=== PATIENT | male | born 1985 | race Caucasian/White ===

== ENCOUNTER → 2019-07-08 | Outpatient (CLI) | payer MEDICARE, OTHER ==
[2019-07-08 16:47] LABS: Basophils # (A) 0.1 k/uL (0-0.2); Basophils % (A) 1 %; Eosinophils # (A) 0.1 k/uL (0-0.7); Eosinophils % (A) 1 %; HCT 50.4 % (39.0-53.0); HGB 17.2 gm/dL (13.0-17.5); Lymphocytes # (A) 2.7 k/uL (1.0-4.8); Lymphocytes % (A) 26 %; MCH 28.8 pg (25.0-35.0); MCHC 34.1 g/dL (31.0-37.0); MCV 84.6 fL (80.0-100.0); Mean Platelet Volume 7.7; Monocytes # (A) 0.4 k/uL (0-1.0); Monocytes % (A) 4 %; Neutrophils # (A) 6.9 k/uL (1.3-7.7); Neutrophils % (A) 67 %; Platelet Count 343 k/uL (150-450); RBC 5.96 m/uL (4.30-5.90); RDW 13.5 % (11.5-15.5); WBC 10.3 k/uL (3.8-10.6)
[2019-07-09 01:39] LABS: T4, Free (Free Thyroxine) 1.4 ng/dL (0.80-1.80)
[2019-07-09 01:50] LABS: Albumin 5.1 g/dL (3.80-4.90); Albumin/Globulin Ratio 2.04 (1.60-3.17); Anion Gap 13.5 mmol/L (4.00-12.00); Calcium 10.4 mg/dL (8.7-10.3); Carbon Dioxide 24.5 mmol/L (21.6-31.8); Chol/HDL Ratio 3.14; Globulin 2.5 g/dL (1.6-3.3); LDL Cholesterol,Calculated 71.6 mg/dL (0.0-131.0); Non-African American GFR(CKD) 117.4 (60.0-200.0); Potassium 4.4 mmol/L (3.5-5.5); Total Bilirubin 0.6 mg/dL (0.2-1.2); Total Protein 7.6 g/dL (6.2-8.2); VLDL Calculation 33.4 mg/dL (5.00-40.00)
== END | disposition home or self-care (01) ==
LOC: LABWHC1 14:50
PROVIDERS: ATTEND Family Medicine
DX: Z00.00 Encounter for general adult medical examination without abnormal findings (principal); E55.9 Vitamin D deficiency, unspecified; E78.5 Hyperlipidemia, unspecified; R53.83 Other fatigue; Z13.220 Encounter for screening for lipoid disorders
CPT/HCPCS: 36415; 80053; 80061; 82306; 84439; 84443; 85025

== ENCOUNTER → 2019-07-24 | Outpatient (CLI) | payer MEDICARE, OTHER ==
--- NOTE | 2019-07-24 13:44 | US ---
EXAMINATION TYPE: US thyroid st tissue head/neck DATE OF EXAM: 07/24/2019 COMPARISON: NONE CLINICAL HISTORY: E01.1 thyroid nodule. Thyroid nodule GLAND SIZE: Right Lobe: 4.8 x 1.5 x 1.9 cm Overall Parenchyma: homogenous Left Lobe: 4.5 x 1.9 x 1.5 cm Overall Parenchyma: homogeneous Isthmus Thickness: 0.3 cm NODULES RIGHT: # of nodules measured on right: 0 LEFT: # of nodules measured on left: 2 1. 1.6 X 1.2 x 1.1 cm hypoechoic solid nodule at the mid pole with well-defined margins. This nodul e is taller than wide and shows intranodular vascularity. Prior size: no previous 2. 0.6 X 0.5 x 0.6 cm hypoechoic cystic nodule at the lateral mid pole with well-defined margins. Th is nodule is wider than tall and shows no intranodular vascularity. Prior size: no previous ISTHMUS: # of nodules measured in the isthmus: 0 Bilateral neck scanned, left neck: 2 complex areas seen lateral and inferior to thyroid lobe. These l ikely represent enlarged lymph nodes with the 1st measuring 4.7 x 1.2 x 1.8cm and the 2nd measuring 3 .7 x 1.7 x 2.1cm. IMPRESSION: 1. Ovoid mass is inferior to the left thyroid lobe, likely enlarged lymph nodes. Short-term follow-up ultrasound could ensure decreased size. If there is no recent infections or possible etiology fine-n eedle aspiration could be considered to exclude lymphoma. 2. Left thyroid nodules measuring 1.6 cm and 0.6 cm. Largest left thyroid nodule is borderline size f or fine-needle aspiration. Short-term follow-up versus aspiration could be considered.
== END | disposition home or self-care (01) ==
LOC: RADCTMAIN 11:16
PROVIDERS: ATTEND Psychiatry & Neurology Pain Medicine
DX: E04.2 Nontoxic multinodular goiter (principal)
CPT/HCPCS: 76536

== ENCOUNTER → 2019-10-05 | Outpatient (CLI) | payer MEDICARE, OTHER | END | disposition home or self-care (01) | LOC: LABWHC1 12:00 | PROVIDERS: ATTEND Surgery | DX: Z11.59 Encounter for screening for other viral diseases (principal) | CPT/HCPCS: 87635 ==

== ENCOUNTER 2019-10-07 11:54 | Day surgery (SDC) | payer MEDICARE, OTHER ==
[2019-10-07 12:36] VITALS: RESP 16; TEMP 98.2
[2019-10-07] MEDS ORDERED: ALPRAZolam 0.5 MG TAB PO ONE (12:43)
[2019-10-07 14:12] VITALS: BP 107/70; PULSE 89
--- NOTE | 2019-10-07 14:32 | US ---
EXAMINATION TYPE: US FNA first lesion DATE OF EXAM: 10/07/2019 HISTORY: left cervical adenopathy FINDINGS: Maximal barrier technique was utilized. Hand hygiene achieved with soap and water. The ski n overlying a suitable path to the patient's left cervical adenopathy was localized with ultrasound a nd the overlying skin prepped and draped. Ultrasound was utilized with sterile technique. Lidocaine was used for local anesthesia. A skin mariam was made with a scalpel. An 21-gauge needle was advance d under direct ultrasound guidance and aspirated specimen obtained of the mass. Dark fluid was aspira adam approximately 5 cc. Specimen submitted in formalin to Pathology. Following the procedure, hemost asis achieved and the patient is discharged in stable condition without complication. IMPRESSION:STATUS POST ULTRASOUND GUIDED FINE-NEEDLE ASPIRATION OF LEFT CERVICAL ADENOPATHY, PATHOLOG Y IS PENDING. THIS PROCEDURE IS PERFORMED BY THE UNDERSIGNED.
== END 2019-10-07 14:16 | disposition home or self-care (01) ==
LOC: RADPROMAIN 11:54
PROVIDERS: ATTEND Surgery
DX: R59.0 Localized enlarged lymph nodes (principal)
CPT/HCPCS: 10005; 88173; 88305

== ENCOUNTER → 2019-12-07 | Outpatient (CLI) | payer MEDICARE, OTHER ==
--- NOTE | 2019-12-08 07:38 | US ---
EXAMINATION TYPE: US st tissue neck DATE OF EXAM: 12/07/2019 COMPARISON: 07/24/2019 CLINICAL HISTORY: 32-year-old male R59.0 LYMPHADENOPATHY OF LT CERVICAL REGION. History of enlarged n odes on the left with h/o FNA that was inconclusive per patient Technique: Scanning along the left side of neck for assessment of lymphadenopathy. Comparison images to the contralateral side were obtained. FINDINGS: String of enlarged, cystic appearing nodes on the left lateral neck. Largest was supraclavicular elmira on = 4.0 x 2.3 x 2.0cm (versus up to 4.7 x 1.8 x 1.2 cm, previously). Right side scanned for comparison and nodes seen were wnl, largest on the right = 1.9 x 1.3 x 0.3cm IMPRESSION: Continued left-sided cervical lymphadenopathy with enlarged, cystic-appearing, possibly suppurative l ymph nodes measuring up to 4.0 x 2.3 x 2.0 cm (versus 4.7 x 1.8 x 1.2 cm, previously). Correlate for possibility of atypical infections. If the findings persist or growth is noted, consider excisional b iopsy. Smaller but borderline sized right-sided lymph nodes measuring up to 1.3 cm short axis.
== END | disposition home or self-care (01) ==
LOC: RADUSWWP 15:53
PROVIDERS: ATTEND Surgery
DX: R59.0 Localized enlarged lymph nodes (principal)
CPT/HCPCS: 76536

== ENCOUNTER 2020-03-08 10:15 | Emergency (ER) | payer MEDICARE, OTHER ==
[2020-03-08 10:21] VITALS: BP 118/78; PULSE 75; RESP 16; TEMP 97.7
[2020-03-08] MEDS ORDERED: AMOXIC-POT CLAV 875-125MG 1 EACH TAB PO STA (10:48)
--- NOTE | 2020-03-08 10:50 | ED ---
ENT HPI - General Chief complaint: ENT Stated complaint: dental pain/abscess Time Seen by Provider: 03/08/20 10:27 Source: patient Mode of arrival: ambulatory Limitations: no limitations - History of Present Illness Initial comments: Patient is a 34-year-old male presenting to the emergency department with chief complaint dental pain. Patient states he has been seeing a dentist but he has poor dentition secondary to previous Drug use or smoking cigarettes and vaping. States he has developed pain for last several days. Denies any night sweats or chills. Denies one sided facial swelling. Denies any discharge from the mouth. States that he receives a dentist is not able to get an at the moment. Patient is requesting antibiotics. - Related Data Home Medications Medication Instructions Recorded Confirmed Ondansetron HCl [Zofran] 8 mg PO DAILY PRN 09/29/19 03/08/20 ALPRAZolam [Xanax] 2 mg PO TID PRN 03/08/20 03/08/20 Buprenorphine HCl/Naloxone HCl 0.5 film SL BID 03/08/20 03/08/20 [Buprenorp-Nalox 8-2 mg Sl Film] Dextroamphetamine/Amphetamine 30 mg PO BID 03/08/20 03/08/20 [Adderall] Previous Rx's Medication Instructions Recorded Amoxicillin/Potassium Clav 1 tab PO Q12HR #20 tab 03/08/20 [Augmentin 875-125 Tablet] Allergies Allergy/AdvReac Type Severity Reaction Status Date / Time Penicillins Allergy Rash/Hives Verified 03/08/20 10:39 [email or web address] [From Chantix] AdvReac Unknown Verified 03/08/20 10:39 Review of Systems ROS Statement: Those systems with pertinent positive or pertinent negative responses have been documented in the HPI. ROS Other: All systems not noted in ROS Statement are negative. Past Medical History Past Medical History: GERD/Reflux, Hyperlipidemia, Liver Disease Additional Past Medical History / Comment(s): ADD, Hepatitis History of Any Multi-Drug Resistant Organisms: None Reported Past Surgical History: Tonsillectomy Past Anesthesia/Blood Transfusion Reactions: No Reported Reaction Past Psychological History: ADD/ADHD, Anxiety Smoking Status: Light tobacco smoker Past Alcohol Use History: None Reported Past Drug Use History: Marijuana - Past Family History Mother Family Medical History: No Reported History General Exam Limitations: no limitations General appearance: alert, in no apparent distress Head exam: Present: atraumatic, normocephalic, normal inspection Eye exam: Present: normal appearance, PERRL, EOMI Pupils: Present: normal accommodation ENT exam: Present: normal exam, mucous membranes moist, TM's normal bilaterally, normal external ear exam. Absent: normal oropharynx (Poor dentition. Multiple partially fractured teeth along with caries. No periapical abscess. Some gingival irritation in the left upper region of the oral cavity.) Neck exam: Present: normal inspection, full ROM. Absent: tenderness Respiratory exam: Present: normal lung sounds bilaterally. Absent: respiratory distress, wheezes, rales Cardiovascular Exam: Present: regular rate, normal rhythm, normal heart sounds Extremities exam: Present: normal inspection, full ROM, normal capillary refill. Absent: tenderness, pedal edema, joint swelling, calf tenderness Back exam: Present: normal inspection, full ROM. Absent: tenderness, CVA tenderness (R), CVA tenderness (L) Neurological exam: Present: alert, oriented X3, normal gait Psychiatric exam: Present: normal affect, normal mood Skin exam: Present: warm, dry, intact, normal color Course Vital Signs 03/08/20 10:18 Temperature 97.7 F Pulse Rate 75 Respiratory 16 Rate Blood Pressure 118/78 O2 Sat by Pulse 100 Oximetry Medical Decision Making - Medical Decision Making Patient 34-year-old male presenting to emergency Department with chief complaint dental pain. On physical examination, patient has poor dentition with multiple fractured teeth and dental caries. No signs of periapical abscess. No other oral lesions detected. He does have some gingival irritation. Patient will be started on Augmentin which he has previously tolerated. Also give the patient a tramadol starter pack per his request which only clue 3 tablets for pain control. Strict return parameters were thoroughly discussed with patient was understanding and agreeable. He was advised to follow-up with a dentist. Case discussed with physician. Disposition Clinical Impression: Pain, dental Disposition: HOME SELF-CARE Condition: Stable Instructions (If sedation given, give patient instructions): Toothache (ED) Additional Instructions: follow up with a dentist. return to the emergency department if symptoms worsen. take prescribed medication as directed Prescriptions: Amoxicillin/Potassium Clav [Augmentin 875-125 Tablet] 1 tab PO Q12HR #20 tab Is patient prescribed a controlled substance at d/c from ED?: No Referrals: Wilbur Deluca MD [Primary Care Provider] - 1-2 days Time of Disposition: 10:50
[2020-03-08] MEDS ORDERED: traMADol 50 MG STARTER PACK 3 TAB BTL PO STA (11:07)
== END 2020-03-08 11:12 | disposition home or self-care (01) ==
LOC: EC 10:15
DX: K08.89 Other specified disorders of teeth and supporting structures (principal); K08.9 Disorder of teeth and supporting structures, unspecified; S02.5XXA Fracture of tooth (traumatic), initial encounter for closed fracture; K02.9 Dental caries, unspecified; F90.9 Attention-deficit hyperactivity disorder, unspecified type; F41.9 Anxiety disorder, unspecified; F17.200 Nicotine dependence, unspecified, uncomplicated; Z79.899 Other long term (current) drug therapy; Z88.0 Allergy status to penicillin; Z88.8 Allergy status to other drugs, medicaments and biological substances; X58.XXXA Exposure to other specified factors, initial encounter
CPT/HCPCS: 99282

== ENCOUNTER → 2020-03-08 | Outpatient (CLI) | payer MEDICARE, OTHER ==
--- NOTE | 2020-03-08 10:48 | US ---
EXAMINATION TYPE: US st tissue neck DATE OF EXAM: 03/08/2020 COMPARISON: 12/07/2019 CLINICAL HISTORY: 34-year-old male R59.0 Localized enlarged lymph nodes. H/O inflamed lymph nodes carlos ng the left neck, patient has had FNA 10/07/19, patient has multiple teeth abscesses and states he has never been on antibiotics Technique: Targeted ultrasound examination along the left side of the neck corresponding to the palpa ble site. FINDINGS: Enlarged lymph node chain seen with largest node inferior to thyroid gland. The largest node = 3.8 x 2.2 x 2.1cm, slightly smaller in size from previous, this is the node they attempted FNA on also. (Ve rsus 4.0 x 2.3 x 2.2 cm, previously) [facility] St[employer]cher notes: Patient states he is "in so much pain that I walked him to to be evaluated." IMPRESSION: Relatively similar suppurative appearing lymphadenopathy along the left side of the neck. Note that t he patient reports to be in severe pain. Correlate to exclude underlying infection.
== END | disposition home or self-care (01) ==
LOC: RADUSWWP 09:30
PROVIDERS: ATTEND Surgery
DX: R59.0 Localized enlarged lymph nodes (principal)
CPT/HCPCS: 76536

== ENCOUNTER → 2020-08-10 | Outpatient (CLI) | payer MEDICARE, OTHER ==
[2020-08-10 19:49] LABS: Basophils # (A) 0.04 X 10*3/uL (0.00-0.10); Basophils % (A) 0.6 %; Eosinophils # (A) 0.13 X 10*3/uL (0.04-0.35); Eosinophils % (A) 2.1 %; HCT 40.3 % (39.6-50.0); HGB 13.6 g/dL (13.0-17.0); Lymphocytes # (A) 2.62 X 10*3/uL (0.90-5.00); Lymphocytes % (A) 41.5 %; MCH 28.8 pg (27.0-32.0); MCHC 33.7 g/dL (32.0-37.0); MCV 85.4 fL (80.0-97.0); Mean Platelet Volume 10.3 fL (9.5-12.2); Monocytes # (A) 0.51 X 10*3/uL (0.20-1.00); Monocytes % (A) 8.1 %; Neutrophils # (A) 3.01 X 10*3/uL (1.80-7.70); Neutrophils % (A) 47.5 %; Platelet Count 294 X 10*3/uL (140-440); RBC 4.72 X 10*6/uL (4.40-5.60); RDW 12.7 % (11.5-14.5); WBC 6.32 X 10*3/uL (4.50-10.00)
[2020-08-11 02:52] LABS: T4, Free (Free Thyroxine) 1.2 ng/dL (0.80-1.80)
[2020-08-11 05:06] LABS: African American GFR (CKD) 128.7 (60.0-200.0); Albumin/Globulin Ratio 2.27 (1.60-3.17); Anion Gap 14.2 mmol/L (4.00-12.00); BUN/Creat Ratio 13.33 Ratio (12.00-20.00); Calcium 10.1 mg/dL (8.7-10.3); Carbon Dioxide 22.8 mmol/L (21.6-31.8); Chol/HDL Ratio 2.85; Globulin 2.2 g/dL (1.6-3.3); LDL Cholesterol,Calculated 56.4 mg/dL (0.0-131.0); Potassium 4.6 mmol/L (3.5-5.5); Total Protein 7.2 g/dL (6.2-8.2); VLDL Calculation 17.6 mg/dL (5.00-40.00)
== END | disposition home or self-care (01) ==
LOC: LABWHC1 10:51
PROVIDERS: ATTEND Family Medicine
DX: Z00.00 Encounter for general adult medical examination without abnormal findings (principal); E55.9 Vitamin D deficiency, unspecified; E78.5 Hyperlipidemia, unspecified; R53.83 Other fatigue; Z13.220 Encounter for screening for lipoid disorders
CPT/HCPCS: 36415; 80053; 80061; 82306; 84439; 84443; 85025

== ENCOUNTER 2020-08-25 14:33 | Inpatient (IN) | payer MEDICARE, MEDICAID ==
[2020-08-25] MEDS ORDERED: ALPRAZolam 1 MG TAB PO STA (15:12)
[2020-08-25 15:23] LABS: Appearance,Urine Turbid (Clear); Bacteria,Urine Rare /hpf; Bilirubin,Urine Negative (Negative); Blood,Urine Negative (Negative); Budding Yeast,Urine Occasional /hpf; Color,Urine Yellow; Glucose,Urine (UA) Negative (Negative); Ketones,Urine Negative (Negative); Leukocyte Esterase,Urine Negative (Negative); Mucus,Urine Few /hpf; Nitrite,Urine Negative (Negative); PH, Urine 5.5 (5.0-8.0); Protein,Urine Trace (Negative); RBC,Urine <1 /hpf (0-5); Specific Gravity,Urine 1.025 (1.001-1.035); Urobilinogen,Urine <2.0 mg/dL (<2.0); WBC,Urine 5 /hpf (0-5)
[2020-08-25 15:30] LABS: Amphetamine Screen,Urine Detected (NotDetected); Barbiturate Screen,Urine Not Detected (NotDetected); Benzodiazepines Screen,Urine Detected (NotDetected); Cocaine Screen,Urine Not Detected (NotDetected); Methadone Screen, Urine Not Detected (NotDetected); Opiate Screen,Urine Not Detected (NotDetected); Oxycodone Screen, Urine Not Detected (NotDetected); Phencyclidine Screen,Urine Not Detected (NotDetected); Tricyclic Antidepressant,Urine Not Detected (NotDetected); Urn Cannabinoid Scrn Detected (NotDetected)
[2020-08-25] MEDS ORDERED: OLANZapine 7.5 MG TAB PO STA (16:47)
--- NOTE | 2020-08-25 16:48 | ED ---
Psych HPI <ShaguftaCristo - Last Filed: 08/26/20 00:58> - General Source: patient, police Mode of arrival: ambulatory <Makenzie Colin - Last Filed: 08/26/20 22:48> - General Chief Complaint: Psychiatric Symptoms Stated Complaint: Petition Time Seen by Provider: 08/25/20 14:35 - History of Present Illness Initial Comments: Patient is a 34-year-old male with past history of ADD, hepatitis presents emergency Department with paranoia and delusions. Patient is accompanied by police. They report that the patient has called the Police Department upwards of 10 times in the past 2 days. He states that he is controlling the stock market. States that he has multiple times and has come back to life. Patient thinks that his phone is being tapped by [employer]. Patient has history of psychiatric disorder. They do arise physician the patient. There is no report of any suicidal or homicidal ideations. No known drug use. Patient is currently intoxicated. No other alleviating, precipitating or modifying factors (Makenzie Colin) - Related Data Home Medications Medication Instructions Recorded Confirmed ALPRAZolam [Xanax] 2 mg PO TID 03/08/20 08/25/20 Dextroamphetamine/Amphetamine 20 mg PO BID 03/08/20 08/25/20 [Adderall] Ondansetron HCl [Zofran] 4 mg PO TID PRN 08/25/20 08/25/20 buprenorphine HCL [Subutex] 4 mg SL BID 08/25/20 08/25/20 Allergies Allergy/AdvReac Type Severity Reaction Status Date / Time Penicillins Allergy Rash/Hives Verified 08/25/20 16:11 [email or web address] [From Chantix] AdvReac Unknown Verified 08/25/20 16:11 Review of Systems ROS Other: All systems not noted in ROS Statement are negative. <Cristo Eagle - Last Filed: 08/26/20 00:58> ROS Other: All systems not noted in ROS Statement are negative. <Makenzie Colin - Last Filed: 08/26/20 22:48> ROS Statement: Those systems with pertinent positive or pertinent negative responses have been documented in the HPI. Past Medical History Past Medical History: GERD/Reflux, Hyperlipidemia, Liver Disease Additional Past Medical History / Comment(s): ADD, Hepatitis C History of Any Multi-Drug Resistant Organisms: None Reported Past Surgical History: Tonsillectomy Past Anesthesia/Blood Transfusion Reactions: No Reported Reaction Past Psychological History: ADD/ADHD, Anxiety Smoking Status: Light tobacco smoker Past Alcohol Use History: None Reported Past Drug Use History: Marijuana - Past Family History Mother Family Medical History: No Reported History <Makenzie Colin - Last Filed: 08/26/20 22:48> General Exam Limitations: altered mental status General appearance: alert Head exam: Present: atraumatic, normocephalic, normal inspection Eye exam: Present: normal appearance, PERRL, EOMI. Absent: scleral icterus, conjunctival injection, periorbital swelling ENT exam: Present: normal exam, mucous membranes moist Neck exam: Present: normal inspection. Absent: tenderness, meningismus, lymphadenopathy Respiratory exam: Present: normal lung sounds bilaterally. Absent: respiratory distress, wheezes, rales, rhonchi, stridor Cardiovascular Exam: Present: tachycardia Neurological exam: Present: alert Psychiatric exam: Present: anxious, manic, other (pressured and nonsensical speech. Paranoid thoughts) <Makenzie Colin - Last Filed: 08/26/20 22:48> Course Vital Signs 08/25/20 08/25/20 14:35 17:20 Temperature 99.3 F Pulse Rate 107 H Respiratory 16 Rate Blood Pressure 113/79 110/80 O2 Sat by Pulse 97 Oximetry Medical Decision Making <Cristo Eagle - Last Filed: 08/26/20 00:58> <Makenzie Colin - Last Filed: 08/26/20 22:48> - Medical Decision Making I did see the patient and completed the clinical certificate (Cristo Eagle) Upon arrival patient is placed in room 13. A thorough history and physical exam was performed. He is requesting his daily dose of Xanax for which she is given. Patient provided a urine sample. He is currently awaiting EPS evaluation. (Makenzie Colin) - Lab Data Lab Results 08/25/20 08/25/20 Range/Units 15:13 22:50 Urine Color Yellow Urine Appearance Turbid (Clear) Urine pH 5.5 (5.0-8.0) Ur Specific [place] 1.025 (1.001-1.035) Urine Protein Trace H (Negative) Urine Glucose (UA) Negative (Negative) Urine Ketones Negative (Negative) Urine Blood Negative (Negative) Urine Nitrite Negative (Negative) Urine Bilirubin Negative (Negative) Urine Urobilinogen <2.0 (<2.0) mg/dL Ur Leukocyte Esterase Negative (Negative) Urine RBC <1 (0-5) /hpf Urine WBC 5 (0-5) /hpf Urine WBC Clumps Few H (None) /hpf Urine Bacteria Rare H (None) /hpf Urine Mucus Few H (None) /hpf Urine Yeast (Budding) Occasional H (None) /hpf Urine Opiates Screen Not Detected (NotDetected) Ur Oxycodone Screen Not Detected (NotDetected) Urine Methadone Screen Not Detected (NotDetected) Ur Propoxyphene Screen Not Detected (NotDetected) Ur Barbiturates Screen Not Detected (NotDetected) U Tricyclic Antidepress Not Detected (NotDetected) Ur Phencyclidine Scrn Not Detected (NotDetected) Ur Amphetamines Screen Detected H (NotDetected) U Methamphetamines Scrn Not Detected (NotDetected) U Benzodiazepines Scrn Detected H (NotDetected) Urine Cocaine Screen Not Detected (NotDetected) U Marijuana (THC) Screen Detected H (NotDetected) Coronavirus (PCR) Not Detected (Not Detectd) Disposition <Cristo Eagle - Last Filed: 08/26/20 00:58> Is patient prescribed a controlled substance at d/c from ED?: No <Makenzie Colin - Last Filed: 08/26/20 22:48> Clinical Impression: Psychosis Disposition: TRANSFER TO PSYCH HOSP/UNIT Condition: Serious
[2020-08-25] MEDS ORDERED: NICOTINE 7MG/24HR PATCH TRANSDERM STA (18:51)
[2020-08-25] MEDS ORDERED: ZIPRASIDONE 20 MG VIAL IM STA (19:08)
[2020-08-26] MEDS ORDERED: LORazepam 2 MG/ML INJ IM STA (01:26)
[2020-08-26] MEDS ORDERED: HALOPERIDOL LACTATE 5 MG/ML 1 ML VIAL IM PRN (01:27)
[2020-08-26] MEDS ORDERED: LORazepam 2 MG/ML INJ IM PRN (01:40)
[2020-08-26] MEDS ORDERED: MAGNESIUM HYDROXIDE 2,400 MG/10 ML CUP PO PRN (01:44)
[2020-08-26] MEDS ORDERED: MAG HYDROX/AL HYDROX/SIMETH 30 ML CUP PO PRN (01:44)
[2020-08-26] MEDS ORDERED: ACETAMINOPHEN TAB 325 MG TAB PO PRN (01:44)
[2020-08-26] MEDS: NICOTINE 14MG/24HR PATCH TRANSDERM SCH (08:16)
[2020-08-26] MEDS: LORazepam 1 MG TAB PO PRN ×3 (08:17→22:49)
[2020-08-26] MEDS ORDERED: NON FORMULARY DRUG (Buprenorphine Hcl [Subutex] 8 MG Tab.Subl) PO SCH (09:00)
[2020-08-26] MEDS ORDERED: NON FORMULARY DRUG PO SCH (09:00)
[2020-08-26] MEDS: haloperidoL 5 MG TAB PO PRN ×2 (13:57→22:53)
--- NOTE | 2020-08-26 14:07 | P.HP ---
Psychiatric H&P - . H&P Date: 08/26/20 History & Physical: IDENTIFYING DATA: He is a single 34-year-old male admitted to the psychiatric unit involuntarily. A friend, Navi Reagan, completed a Petition that read "Philip displayed paranoid and very delusional with real world situation s, his mental health is needing acute medical attention. Philip has had paranoia for many months. He has prior medical issues/memory concerns." HISTORY OF PRESENT ILLNESS: I reviewed the medical record including records from [facility], interviewed the patient and spoke with his adopted mother, Alexia. According to the ED assessment the police brought him to the ED and reported that he had called the police department up to 10 times over the 2 days prior to admission. He told the ED physician that he's controlling the stock market. He is multiple times and has come back to life. He believes that his phone is "being tapped" by [place]. He was irritable and minimally cooperative. He rambled about earning $50 million of [employer] and some people, whom he refers as "they" are trying to steal money from him. During the course of the interview he incorporated me into his paranoia alleging that I am also involved in keeping him from his money. In addition, he demanded to continue medications prescribed Suboxone, Adderall and Xanax prescribed by his primary care provider. He became increasingly angry when I explained that we do not prescribe Adderall and Xanax on this unit. His mother reported that he had been doing well up until about 2-3 months ago. He became increasing irritable, angry and demanding. She complained that he believes that he has $50 million and has called the police multiple times to complained that he was defrauded of this money. He believes that someone is scamming him. They're taking over his phone and doing something "online." He told her that "it is international." He is irritable and angry and is staying up all night to "watch his money." His aunt called mobile crisis about 2 weeks ago concerned about the marked change in his behavior. PAST PSYCHIATRIC HISTORY: Was unable to obtain a coherent past psychiatric history. He had a psychiatric assessment at [facility] in May 2020 where he was diagnosed with major depressive disorder with psychotic features, cannabis use disorder, mild neurocognitive disorder due to traumatic brain injury, alcohol use disorder, opiate use disorder and attention deficit disorder. He refused to continue with treatment because the recommendation from the mental health was to taper and discontinue Xanax and reduce the Adderall since psychostimulant such as Adderall may lower seizure threshold (he has a history of seizures). His adoptive mother reports that he's been involved in mental health services off and on since he was a child. He was diagnosed with ADHD and a learning disability. He has been treated with psychostimulants since he was a child. She was unsure but he may have been admitted to the psychiatric unit [facility] several years ago. PAST MEDICAL HISTORY: According to the medical record he has a history of GERD, hyperlipidemia and liver disease. diagnosed with hepatitis C. His mother reported multiple head injuries, seizures and hospitalizations secondary to heroin overdoses. ALLERGIES: Penicillins, varenicline SUBSTANCE USE HISTORY: He also would not talk but his substance use history. His mother reported that he began using heroin as a young adult. He had multiple rehabilitation episodes including a methadone maintenance clinic. He's had multiple heroin overdoses. He has been abstinent from heroin about 3 years and is prescribed Suboxone 8 mg twice a day by his primary care provider. She suspects he has a history of use of other drugs and alcohol. FAMILY PSYCHIATRIC/SUBSTANCE USE HISTORY: His biological mother had a history of substance use problems. LEGAL HISTORY: He has not on probation, parole or has pending charges. He is had multiple controlled substance possession convictions. He was released from supervision on 05/26/2019. SOCIAL HISTORY: He was born in [facility]. His aunt took custody of him at 18 months because his mother and father could not care for him. His mother had a history of substance use problems. The aunt adopted him when he was 3 years old. He was diagnosed with learning disorder and ADHD in elementary school where he was placed in special education. He graduated from high school. He was not able to consistently maintain employment. He was placed on disability in 2018. His mother is his payee and is considering petitioning for [employer]. He lives alone in an apartment. MENTAL STATUS EXAM: He presented as a disheveled appearing thin male who is irritable and angry. He made intermittent eye contact. He was restless throughout the interview. He had no distinguishing features or prominent physical abnormalities. He had angry facial expression. He was alert and oriented to person, place and time. He showed psychomotor agitation but no abnormal involuntary movements. His gait was steady. His speech was spontaneous with increased rate and volume. At times she became markedly angry and was yelling in the office. His affect was irritable and labile and at times intense and uncontrolled. He did not express suicidal ideation or wishes during our encounter. He talked about wanting to "kill them" for stealing his money. He obsessed over the belief that he 1 large amount of money and that some people are trying to steal the money from him. He was paranoid and express clear and organize paranoid delusional beliefs. His thinking was concrete, illogical and at times incoherent. He showed flight of ideas. Global impression of intellect is average. He has no awareness or understanding of his illness or need for treatment. STRENGTHS: Supportive family, stable income, stable housing, good physical health, abstinence from heroin WEAKNESSES: History of substance use disorder, chronic treatment with psychostimulants and benzodiazepines, learning disability, history of closed head injury IMPRESSION: He is a 34-year-old single male who has a history of ADHD and learning disability. He presented to unit involuntarily with increased irritability, restlessness, confusion and a fixed grandiose and paranoid delusional beliefs. He was minimally cooperative with the assessment and much information was obtained from his adopted mother. She describes a change in his behavior beginning to 3 months prior to admission. He has a history of opiate use disorder as been abstinent since he has been prescribed Suboxone. I suspect that the change in his mental status is related to use of high-dose benzodiazepines and psychostimulants since he does not have a history of a psychotic disorder. She was she inpatient basis with combination of psychopharmacology and multimodal therapy. PRINCIPLE DIAGNOSIS: Unspecified psychosis disorder, rule out substance induced psychotic disorder, rule out bipolar disorder most recent episode manic with psychotic features, opiate use disorder and activities therapy, benzodiazepine use disorder, rule out benzodiazepine and/or amphetamine withdrawal, history of ADHD, history of learning disability RECOMMENDATION: Admit the psychiatric unit involuntarily. Completed the second clinical certificate and proceeded with involuntary hospitalization. Consult medicine for initial physical exam and medical history. house worker general completed a psychosocial assessment to coordinate discharge and aftercare. Continue outpatient dose of buprenorphine 4 mg sublingual twice a day. Do not prescribed Adderall or Xanax. Ativan 1 mg by mouth or IM 3 times a day when necessary for agitation or anxiety. Haldol 5 mg by mouth or IM for agitation acute psychosis. Discuss treatment with a second generation antipsychotic; if he declines consent then begin the medication after the probate order for involuntary treatment. Evaluate clinical status response to treatment daily basis. Encourage participation in therapeutic groups and activities. Allergies Allergy/AdvReac Type Severity Reaction Status Date / Time Penicillins Allergy Rash/Hives Verified 08/25/20 16:11 varenicline [From Chantix] AdvReac Unknown Verified 08/25/20 16:11 Vital Signs Temp 99.3 F 08/25/20 14:35 Pulse 107 H 08/25/20 14:35 Resp 16 08/25/20 14:35 BP 110/80 08/25/20 17:20 Pulse Ox 97 08/25/20 14:35 Intake & Output 08/25/20 08/26/20 08/26/20 18:59 06:59 18:59 Weight 58.967 kg Laboratory Last Values Urine Color Yellow 08/25/20 15:13 Urine Appearance Turbid (Clear) 08/25/20 15:13 Urine pH 5.5 (5.0-8.0) 08/25/20 15:13 Ur Specific [place] 1.025 (1.001-1.035) 08/25/20 15:13 Urine Protein Trace (Negative) H 08/25/20 15:13 Urine Glucose (UA) Negative (Negative) 08/25/20 15:13 Urine Ketones Negative (Negative) 08/25/20 15:13 Urine Blood Negative (Negative) 08/25/20 15:13 Urine Nitrite Negative (Negative) 08/25/20 15:13 Urine Bilirubin Negative (Negative) 08/25/20 15:13 Urine Urobilinogen <2.0 mg/dL (<2.0) 08/25/20 15:13 Ur Leukocyte Esterase Negative (Negative) 08/25/20 15:13 Urine RBC <1 /hpf (0-5) 08/25/20 15:13 Urine WBC 5 /hpf (0-5) 08/25/20 15:13 Urine WBC Clumps Few /hpf (None) H 08/25/20 15:13 Urine Bacteria Rare /hpf (None) H 08/25/20 15:13 Urine Mucus Few /hpf (None) H 08/25/20 15:13 Urine Yeast (Budding) Occasional /hpf (None) H 08/25/20 15:13 Urine Opiates Screen Not Detected (NotDetected) 08/25/20 15:13 Ur Oxycodone Screen Not Detected (NotDetected) 08/25/20 15:13 Urine Methadone Screen Not Detected (NotDetected) 08/25/20 15:13 Ur Propoxyphene Screen Not Detected (NotDetected) 08/25/20 15:13 Ur Barbiturates Screen Not Detected (NotDetected) 08/25/20 15:13 U Tricyclic Antidepress Not Detected (NotDetected) 08/25/20 15:13 Ur Phencyclidine Scrn Not Detected (NotDetected) 08/25/20 15:13 Ur Amphetamines Screen Detected (NotDetected) H 08/25/20 15:13 U Methamphetamines Scrn Not Detected (NotDetected) 08/25/20 15:13 U Benzodiazepines Scrn Detected (NotDetected) H 08/25/20 15:13 Urine Cocaine Screen Not Detected (NotDetected) 08/25/20 15:13 U Marijuana (THC) Screen Detected (NotDetected) H 08/25/20 15:13 Coronavirus (PCR) Not Detected (Not Detectd) 08/25/20 22:50 08/26/20 09:36 08/26/20 11:12 08/26/20 13:57
--- NOTE | 2020-08-26 20:59 | CONS ---
CONSULTATION CHIEF COMPLAINT: Acute psychosis. HISTORY OF PRESENT ILLNESS: The is the first known admission for this 34-year-old white male who has a long history of psychiatric problems and drug abuse. He has been coming to us recently in the Suboxone program and has recently done very well. He has cleaned up his drug habit. Apparently he was exuding paranoid delusions and was brought to the emergency room by the police. At the present time he is very lethargic and there is no other history obtained. Past medical history, family history, and personal and social histories reveal he is ALLERGIC TO CHANTIX AND PENICILLIN. He is currently on Zofran 4 mg 3 times a day p.r.n., Xanax 2 mg t.i.d., buprenorphine 8 mg tablets 1/2 twice a day, and Adderall 20 mg twice a day. PHYSICAL EXAMINATION: Blood pressure 128/80, pulse 96, respirations 24. He is afebrile. In general he appeared to be very lethargic. Skin color was normal. Skin was dry. Head, ears, eyes, nose, mouth and throat were normal as well as could be examined. Chest was clear. Cardiac exam was normal. The abdomen was soft and nontender. Extremities were normal. IMPRESSION: 1. Paranoid schizophrenia with acute psychosis. 2. History of substance abuse. RECOMMENDATIONS: None except to keep him on his medications as he is taking as an outpatient. MMODL / IJN: [id number] /
[2020-08-26] MEDS: SUBUTEX PO SCH (22:01)
[2020-08-27] MEDS: NICOTINE 14MG/24HR PATCH TRANSDERM SCH (08:33)
[2020-08-27] MEDS: LORazepam 1 MG TAB PO PRN ×3 (08:34→21:01)
[2020-08-27] MEDS: SUBUTEX PO SCH ×2 (08:36→20:59)
[2020-08-27] MEDS: haloperidoL 5 MG TAB PO PRN (12:11)
[2020-08-27] MEDS ORDERED: cloNIDine HCL 0.2 MG TAB PO PRN (15:30)
--- NOTE | 2020-08-27 15:32 | P.PN ---
Progress Note - Text Progress Note Date: 08/27/20 Clinical Problems: Unspecified psychotic disorder, rule out substance-induced psychotic disorder, rule out bipolar disorder recent episode manic with psychotic features, opiate use disorder on agonist therapy, opiate withdrawal, benzodiazepine use disorder, benzodiazepine withdrawal, amphetamine withdrawal, history of ADHD, history of learning disability Interim history: I reviewed the medical record and attempted to interview the patient. He was laying in bed with a towel over his eyes. He was irritable and demanding. He is angry that we have not provided him with his buprenorphine, Adderall or Xanax. I again explained that we will not be prescribing Xanax or Adderall but we will dispense buprenorphine once his mother brings in his home medication. He is frequently requesting when necessary Ativan for complaints of subjective anxiety. He is not attending therapeutic groups or interacting with staff or peers. He spends his time in bed coming out for meals and medications. He slept 7 hours last night. Mental status exam: He presented as an irritable and angry 34-year-old male who is laying in bed. He would not make eye contact or fully cooperate with an interview. He had marked Angelo psychomotor slowing. His speech was abrupt, loud and angry. His affect was consistent with his mood. He didn't express suicidal ideation wishes homicidal ideation. He did not express paranoid ideation or delusions. His thinking was concrete medication. His thinking was concrete and medication focused. He did not appear to be responding to internal stimuli. Assessment: He is experiencing withdrawal from opiates, benzodiazepines and psychostimulants. I suspect that his psychotic symptoms were result of his multiple drug use is particularly the Adderall. We will administer buprenorphine once his mother brings in his home medications. Plan: Continue inpatient treatment. Safety precautions. Begin clonidine with 2 mg 4 times a day when necessary for opiate withdrawal symptoms. Continue Haldol and/or Ativan for anxiety, agitation or aggression. Encourage participation in therapeutic groups and activities. Evaluate clinical status response to treatment daily basis.
[2020-08-28] MEDS: NICOTINE 14MG/24HR PATCH TRANSDERM SCH (08:29)
[2020-08-28] MEDS: PATIENT'S OWN (Buprenorphine Hcl [Subutex] 8 MG Tab.Subl) PO SCH ×2 (10:02→21:30)
[2020-08-28] MEDS: SUBOXONE 4 MG PO SCH ×2 (10:03→10:09)
[2020-08-28] MEDS: LORazepam 1 MG TAB PO PRN (10:07)
[2020-08-28] MEDS: SUBUTEX PO SCH (11:11)
[2020-08-28] MEDS ORDERED: OLANZapine 5 MG TAB PO PRN (14:00)
[2020-08-28] MEDS ORDERED: OLANZapine 10 MG VIAL IM PRN (14:00)
[2020-08-28] MEDS: OLANZapine 2.5 MG TAB PO SCH (14:47)
--- NOTE | 2020-08-28 15:00 | P.PN ---
Progress Note - Text Progress Note Date: 08/28/20 Clinical Problems: Unspecified psychotic disorder, rule out substance-induced psychotic disorder, rule out bipolar disorder recent episode manic with psychotic features, opiate use disorder on agonist therapy, opiate withdrawal, benzodiazepine use disorder, benzodiazepine withdrawal, amphetamine withdrawal, history of ADHD, history of learning disability Interim history: I reviewed the medical record and interviewed the patient. He was much less irritable and withdrawn than yesterday. His mother brought this prescription of buprenorphine for us to dispense. His mood improved with markedly after the first dose of buprenorphine. However, he requested to reduce the dose from the prescribed 8 mg twice a day to 4 mg twice a day. He stated that he is concerned about "running out" of the buprenorphine was in the hospital and, he alleged that he has been trying to reduce his dose. He began talking about the bizarre and grandiose beliefs that brought him to the hospital. Specifically that he won millions of dollars and that some people have stolen most of her money from him. He believes that he won the fortune in digital money and somehow became involved in global payment system. He became upset when I challenged his belief. He maintained that he is not "delusional" and stated that a for no anything about digital money I would know that he is talking about. However, he agreed to start an antipsychotic He is not attending therapeutic groups or interacting with staff or peers. He spends his time in bed coming out for meals and medications. He slept 7 hours last night. Mental status exam: He presented as a thin and slightly disheveled appearing 34-year-old male who is laying in bed. He made eye contact and attended the interview. His speech was spontaneous with normal rate and rhythm. His affect was irritable but appropriate. He denied suicidal ideation wishes homicidal ideation. He talked extensively about his fixed paranoid and grandiose delusional beliefs. These beliefs are fixed and influencing his behavior. His thinking was concrete medication. His thinking was concrete but goal directed He did not appear to be responding to internal stimuli. Assessment: He is much less distressed after we restarted buprenorphine. He is again talking about his chronic delusional beliefs. I wonder if she is a victim of an email scam where he is promise payment if he remits money. Plan: Continue inpatient treatment. Safety precautions. Decrease buprenorphine 4 mg twice a day Begin olanzapine 2.5 mg daily and titrated according to clinical response and tolerance. Discontinue Haldol and prescribed olanzapine 5 mg by mouth or IM 3 times a day when necessary for anxiety, agitation acute psychosis. Continue Ativan 1 mg by mouth or IM 3 times a day. Encourage participation in therapeutic groups and activities. Evaluate clinical status response to treatment daily basis.
[2020-08-28] MEDS ORDERED: BENZTROPINE MESYLATE 1 MG TAB PO PRN (20:03)
[2020-08-28] MEDS ORDERED: BENZTROPINE 2 MG/2 ML AMP IM ONE (20:15)
[2020-08-29] MEDS: NICOTINE 14MG/24HR PATCH TRANSDERM SCH (08:29)
[2020-08-29] MEDS: OLANZapine 2.5 MG TAB PO SCH (08:29)
[2020-08-29] MEDS: PATIENT'S OWN (Buprenorphine Hcl [Subutex] 8 MG Tab.Subl) PO SCH ×2 (08:29→21:12)
[2020-08-29] MEDS: LORazepam 1 MG TAB PO PRN ×2 (11:06→22:33)
--- NOTE | 2020-08-29 13:29 | P.PN ---
Progress Note - Text Progress Note Date: 08/29/20 Clinical Problems: Unspecified psychotic disorder, rule out substance-induced psychotic disorder, rule out bipolar disorder recent episode manic with psychotic features, opiate use disorder on agonist therapy, opiate withdrawal, benzodiazepine use disorder, benzodiazepine withdrawal, amphetamine withdrawal, history of ADHD, history of learning disability Interim history: I reviewed the medical record and interviewed the patient. He had a dystonic reaction yesterday that he attributes to the Zyprexa. I told him that I suspect is related to the Haldol he took on Saturday and Saturday. We spent much of the session talking about him and his fixed delusional belief. In addition to the grandiose belief that he has 180 mg dollars he believes that "some people" has stolen most of his money and "people" are monitoring him. They have "tapped his phone" and monitor his computer. He believes that he won or earned this money from his stock investments through a mobile phone and called [employer]. I looked up this application and it a popular banking, investment and peer lending program. He was reluctant to talk about the details because he believes that he signed a "nondisclosure agreement" and the "people" were monitoring him will no if he violated the agreement. He is denying and opiate withdrawal symptoms. Mental status exam: He presented as a thin and slightly disheveled appearing 34-year-old male who is laying in bed. He made eye contact and attended the interview. His speech was spontaneous with normal rate and rhythm. His affect was calm and appropriate. He denied suicidal ideation wishes homicidal ideation. He talked extensively about his fixed paranoid and grandiose delusional beliefs. These beliefs are fixed and influencing his behavior. His thinking was concrete medication. His thinking was concrete but goal directed He did not appear to be responding to internal stimuli. Assessment: He is much less distressed than on admission. He experienced a dystonic reaction to antipsychotic medication that has since resolved.. He main tains a fixed paranoid and grandiose delusional beliefs. Plan: Continue inpatient treatment. Safety precautions. Continue buprenorphine 4 mg twice a day encourage him to continue with olanzapine 2.5 mg daily and titrated according to clinical response and tolerance. Continue Ativan 1 mg by mouth or IM 3 times a day. Encourage participation in therapeutic groups and activities. Evaluate clinical status response to treatment daily basis.
[2020-08-29] MEDS ORDERED: BENZTROPINE 2 MG/2 ML AMP IM ONE (20:15)
[2020-08-30] MEDS: PATIENT'S OWN (Buprenorphine Hcl [Subutex] 8 MG Tab.Subl) PO SCH ×2 (08:01→20:33)
[2020-08-30] MEDS: NICOTINE 14MG/24HR PATCH TRANSDERM SCH (08:02)
[2020-08-30] MEDS: OLANZapine 2.5 MG TAB PO SCH (08:02)
--- NOTE | 2020-08-30 11:02 | P.PN ---
Progress Note - Text Progress Note Date: 08/30/20 Interval History: Patient was seen wandering the hallways and was directable and agreeable to speak with copy writer in the office. The patient is experiencing significant grandiose and bizarre delusions. He currently rambles on about cryptocurrency, block chain, and the stock market. When asked to further elaborate the patient reveals little to no true understanding about any of these subjects. He states he has at least $1.2 million dollar that he needs to move. He expresses that his phone is bugged by "[place]ians in [place]." He also expresses that all of his wealth and everything he is saying is true as he signed "a 30 page non- disclosure agreement." When asked what his NDA entails, the patient responds, "What is an NDA?" He is also medication seeking stating he requires his adderall and xanax to function properly. He expresses regret at the end of the interview stating "If I'm honest, then I feel like I am staying here longer." Patient denies any suicidal or homicidal ideation, intention, and/or plan. He denies any auditory or visual hallucinations. Mental Status Exam: General Appearance: Patient appears to be stated age is alert, directable, and cooperative. Appears disheveled. Dressed in multiple layers. Behavior: Patient is calmly seated without any agitated behavior. Eye contact is intense. Psychomotor activity appears normal. Speech: Patient's speech is fluent and nonpressured. Spontaneous. Mood/Affect: Mood is "ready to go," affect is irritable. Suicidality/Homicidality: Patient denies having any suicidal or homicidal ideation intent or plan. Perceptions: Patient denies any visual hallucinations and denies any auditory hallucinations Though content/process: Grandiose and bizarre delusions are endorsed. Thought process is illogical. Memory and concentration: AOX3, grossly intact for the purposes of this session Judgment and insight: Very poor Assessment Schizoaffective disorder, bipolar type Plan: -Patient continues to meet criteria for inpatient psychiatric admission for symptom stabilization and safety. -Medications: Discontinue Zyprexa. Start Invega 3 mg by mouth at bedtime for mood stabilization/psychosis. Consider transition to a long-acting injectable Invega Sustenna. Start Depakote 500 mg by mouth at bedtime for mood stabilization/grandiosity. -When necessary Ativan and Zyprexa for agitation/aggression. -SW on board fordischarge planing. Encouraged the patient to participate in milieu. []
[2020-08-30] MEDS: LORazepam 1 MG TAB PO PRN ×2 (11:38→20:33)
[2020-08-30] MEDS ORDERED: PALIPERIDONE 3 MG TAB.ER.24 PO SCH (21:00)
[2020-08-30] MEDS ORDERED: OLANZapine 5 MG TAB PO SCH (21:00)
[2020-08-30] MEDS ORDERED: DIVALPROEX ER 500 MG TAB.ER.24H PO SCH (21:00)
[2020-08-31] MEDS: LORazepam 1 MG TAB PO PRN ×3 (00:52→16:44)
[2020-08-31] MEDS: PATIENT'S OWN (Buprenorphine Hcl [Subutex] 8 MG Tab.Subl) PO SCH ×2 (08:17→16:42)
[2020-08-31] MEDS ORDERED: OLANZapine 5 MG TAB PO SCH (09:00)
[2020-08-31] MEDS: NICOTINE 14MG/24HR PATCH TRANSDERM SCH (09:03)
--- NOTE | 2020-08-31 10:08 | P.PN ---
Progress Note - Text Progress Note Date: 08/31/20 Interval History: Patient was seen resting in bed and was directable and agreeable to speak with the signwriter in his room. The patient expresses that he is feeling better today. He reports that he had some difficulty sleeping last night, commenting that he only received about 2 hours in total. Despite this, patient is not reporting any significant issues regarding his mood. He is denying any auditory or visual hallucinations. He is not forthcoming with any paranoia or delusions. He is unable to recall the conversation we had yesterday, but when he was reminded about his discussion with me regarding group to currency, the patient began ranting and discussing his grandiose and bizarre delusions. He also appears to continue to be very medication seeking often asking for more Adderall or Xanax. He is also asking if his Subutex may be administered a different time. Overall, the patient does state that he feels like his focus is improved since starting his Invega and Depakote. He is not reporting any significant side effects at this time. Mental Status Exam: General Appearance: Patient appears to be stated age is alert, directable, and cooperative. Improved hygiene and grooming. Dressed in multiple layers. Behavior: Patient is calmly seated without any agitated behavior. Eye contact is intense. Psychomotor activity appears normal. Speech: Patient's speech is fluent and nonpressured. Spontaneous. Mood/Affect: Mood is "feeling okay." Affect is congruent and euthymic. Suicidality/Homicidality: Patient denies having any suicidal or homicidal ideation intent or plan. Perceptions: Patient denies any visual hallucinations and denies any auditory hallucinations Though content/process: Grandiose and bizarre delusions are endorsed but less forthcoming. Thought process is illogical. Memory and concentration: AOX3, grossly intact for the purposes of this session Judgment and insight: Very poor Assessment Schizoaffective disorder, bipolar type Plan: -Patient continues to meet criteria for inpatient psychiatric admission for symptom stabilization and safety. The patient is on deferral. -Medications: Increase Invega to 6 mg by mouth daily at bedtime for mood stabilization/psychosis. Increase Depakote to 750 mg by mouth at bedtime for mood stabilization/grandiosity. We will obtain Depakote level on Saturday. -When necessary Ativan and Zyprexa for agitation/aggression. -SW on board fordischarge planing. Encouraged the patient to participate in milieu.
[2020-08-31] MEDS ORDERED: DIVALPROEX ER 250 MG TAB.ER.24H PO SCH (21:00)
[2020-08-31] MEDS ORDERED: PALIPERIDONE 6 MG TAB.ER.24 PO SCH (21:00)
[2020-09-01] MEDS: LORazepam 1 MG TAB PO PRN ×2 (00:19→07:49)
[2020-09-01 00:27] VITALS: BP 110/72; PULSE 87; RESP 16; TEMP 97.4
[2020-09-01] MEDS: NICOTINE 14MG/24HR PATCH TRANSDERM SCH (07:48)
[2020-09-01] MEDS: PATIENT'S OWN (Buprenorphine Hcl [Subutex] 8 MG Tab.Subl) PO SCH (08:07)
[2020-09-01 09:14] LABS: ALT 39 U/L (4-49); African American GFR (CKD) >90 (>60 ml/min/1.73 sqM); Anion Gap 15 mmol/L; Blood Urea Nitrogen 16 mg/dL (9-20); Carbon Dioxide 20 mmol/L (22-30); Chloride 106 mmol/L (98-107); Glucose 94 mg/dL (74-99); Non-African American GFR(CKD) >90 (>60 ml/min/1.73 sqM); Sodium 141 mmol/L (137-145); Total Bilirubin 0.7 mg/dL (0.2-1.3); Total Protein 8.2 g/dL (6.3-8.2)
[2020-09-01 09:20] LABS: Valproic Acid (Depakene) 93.6 ug/mL
[2020-09-01 09:24] LABS: AST 40 U/L (17-59); Alkaline Phosphatase 80 U/L (38-126); Potassium 4.9 mmol/L (3.5-5.1)
--- NOTE | 2020-09-01 10:11 | P.DS ---
Providers Date of admission: 08/26/20 01:23 Expected date of discharge: 09/01/20 Attending physician: Cliff Phillips MD Consults: 08/26/20 01:44 Consult Physician Routine Consulting Provider: Wilbur Deluca Consult Reason/Comments: For H & P for Medical Follow Up Do you want consulting provider notified?: Yes, Notify in am Primary care physician: Wilbur Deluac - Discharge Diagnosis(es) (1) Schizoaffective disorder, bipolar type Current Visit: Yes Status: Acute Priority: High (2) Nicotine dependence Current Visit: Yes Status: Chronic Priority: Medium Hospital Course: Admission HPI: Initial psychiatric evaluation was completed by Dr. Phillips on 08/26/2020 who wrote: "He is a single 34-year-old male admitted to the psychiatric unit involuntarily. A friend, Navi Reagan, completed a Petition that read "Philip displayed paranoid and very delusional with real world situations, his mental health is needing acute medical attention. Philip has had paranoia for many months. He has prior medical issues/memory concerns." I reviewed the medical record including records from [facility], interviewed the patient and spoke with his adopted mother, Alexia. According to the ED assessment the police brought him to the ED and reported that he had called the police department up to 10 times over the 2 days prior to admission. He told the ED physician that he's controlling the stock market. He is multiple times and has come back to life. He believes that his phone is "being tapped" by [place]. He was irritable and minimally cooperative. He rambled about earning $50 million of [employer] and some people, whom he refers as "they" are trying to steal money from him. During the course of the interview he incorporated me into his paranoia alleging that I am also involved in keeping him from his money. In addition, he demanded to continue medications prescribed Suboxone, Adderall and Xanax prescribed by his primary care provider. He became increasingly angry when I explained that we do not prescribe Adderall and Xanax on this unit. His mother reported that he had been doing well up until about 2-3 months ago. He became increasing irritable, angry and demanding. She complained that he believes that he has $50 million and has called the police multiple times to complained that he was defrauded of this money. He believes that someone is scamming him. They're taking over his phone and doing something "online." He told her that "it is international." He is irritable and angry and is staying up all night to "watch his money." His aunt called mobile crisis about 2 weeks ago concerned about the marked change in his behavior." Hospital course: Upon admission to the unit patient was initially presenting as irritable and angry. Psychomotor agitation was evident. He endorsed significant paranoid and grandiose delusions involving large amounts of money, cryptocurrency, and delusions of surveillance. The patient was certified. The patient ended up deferring mental health court and was started on a regimen of Depakote and Invega for management of schizoaffective disorder bipolar type. The patient was compliant with these medications and displayed significant improvement in his gross disorganization and his grandiose and paranoid delusions. Although he continued to endorse his delusions, he was less forthcoming and less intense about these thoughts. He has been in adherent with his medications and reported no significant side effects. Over the course the hospitalization, the patient gradually improved in regards to his target psychotic symptoms, sleep, mood, and focus. He maintains his Adderall and Xanax for management of his ADHD and mood despite significant discussion involving his diagnosis of schizo effective disorder bipolar type as well as his history of seizures. This provider also left a message for Dr. Deluca's office recommending that the patient be tapered off his Adderall and Xanax as these medications may contribute to his psychotic symptoms. The patient has been scheduled for an appointment for dental implants that has been 6 months in the making. On the day of discharge, the patient continues to endorse his grandiose delusions and his belief that he has millions of dollars as well as mild delusions of surveillance. Overall he is less forthcoming with said delusions and does not appear to be acting on any of them. He has been adherent with his medications and was counseled great length the need for regular compliance as well as being counseled on the recommendation to taper off his Adderall and Xanax. The patient was counseled great length on abstaining from all illicit substances including alcohol and marijuana. He was counseled on following up with his outpatient appointments for mental health as well as for primary care. Prior to discharge, family meeting will be arranged by social work therapist chance any questions and ensure safety. Mental status exam: General Appearance: Patient appears to be stated age is alert, pleasant, and cooperative. Patient is in no acute distress and has fair hygiene and grooming. Behavior: Patient is calmly seated without any agitated behavior. Psychomotor activity appears normal. Speech: Patient's speech is fluent and nonpressured. Spontaneous, hyperverbal at times but otherwise with normal rate, tone, and volume. Mood/Affect: Patient reports their mood is "much better", affect is congruent and euthymic. Suicidality/Homicidality: Patient denies having any suicidal or homicidal ideation intent or plan. Perceptions: Patient denies any auditory or visual hallucinations. Though content/process: Thought process is linear and goal-directed. Patient continues to endorse delusional thought content of grandiosity and surveillance but is less forthcoming. The patient is future oriented. Memory and concentration: AOX3, grossly intact for the purposes of this session. Can spell "WORLD" backwards correctly. Judgment and insight: Improved with guarded prognosis Impression: Schizoaffective disorder, bipolar type Nicotine dependence Plan: -Continue with discharge today as patient has improved and stabilized psychiatrically and is not currently an imminent threat to himself and/or others. Patient will remain at chronically elevated risk for harm to self and/or others due to his lack of insight and substance dependence. -Continue medications: Invega 6 mg by mouth at bedtime for mood stabilization/psychosis Depakote 750 mg by mouth at bedtime for mood stabilization - Depakote level of 93.6 on 09/01/2020. -Patient was counseled on the need for medication compliance and appropriate follow-up at mental health and also primary care for medical issues. Patient verbalized understanding and agreed. -Social work to arrange for and conduct family meeting to ensure safety upon discharge and answer any questions/concerns. Social work also to arrange for patients follow up appointments with [facility] for psychiatric care along with follow up with primary care provider. -Patient counseled on abstaining from recreational drugs and marijuana and alcohol. Was informed/educated on the adverse effects on their physical and mental health. Patient verbally agreed and understood. -Patient was instructed to return to the hospital or seek immediate medical care if their psychiatric or medical symptoms do worsen or reoccur. -Psychoeducation and supportive therapy provided to patient. Risks and benefits of pharmacological treatment versus the risks and benefits of nontreatment weight and discussed. Informed consent discussion held. Common side effects of psychotropics discussed such as, but not limited to headache, GI disturbance, sexual dysfunction, movement disorders, sedation, and orthostatic hypotension. Life threatening and blackbox warnings of prescribed medications also discussed. Potential risks of operating a vehicle or heavy machinery discussed with patient at length. Advised on importance of compliance and a reliable and responsible manner. Patient advised to review FDA consumer labeling of all medi cations prior to taking. Patient verbalized understanding of potential risks, and agrees with current treatment plan. Patient advised to medically contact physician/emergency personnel if any acute changes in condition occur. Laboratory Results Sodium 141 mmol/L (137-145) 09/01/20 07:51 Potassium 4.9 mmol/L (3.5-5.1) 09/01/20 07:51 Chloride 106 mmol/L (98-107) 09/01/20 07:51 Carbon Dioxide 20 mmol/L (22-30) L 09/01/20 07:51 Anion Gap 15 mmol/L 09/01/20 07:51 BUN 16 mg/dL (9-20) 09/01/20 07:51 Creatinine 0.72 mg/dL (0.66-1.25) 09/01/20 07:51 Est GFR (CKD-EPI)AfAm >90 (>60 ml/min/1.73 sqM) 09/01/20 07:51 Est GFR (CKD-EPI)NonAf >90 (>60 ml/min/1.73 sqM) 09/01/20 07:51 Glucose 94 mg/dL (74-99) 09/01/20 07:51 Calcium 10.0 mg/dL (8.4-10.2) 09/01/20 07:51 Total Bilirubin 0.7 mg/dL (0.2-1.3) 09/01/20 07:51 AST 40 U/L (17-59) 09/01/20 07:51 ALT 39 U/L (4-49) 09/01/20 07:51 Alkaline Phosphatase 80 U/L (38-126) 09/01/20 07:51 Total Protein 8.2 g/dL (6.3-8.2) 09/01/20 07:51 Albumin 5.0 g/dL (3.5-5.0) 09/01/20 07:51 Urine Color Yellow 08/25/20 15:13 Urine Appearance Turbid (Clear) 08/25/20 15:13 Urine pH 5.5 (5.0-8.0) 08/25/20 15:13 Ur Specific [place] 1.025 (1.001-1.035) 08/25/20 15:13 Urine Protein Trace (Negative) H 08/25/20 15:13 Urine Glucose (UA) Negative (Negative) 08/25/20 15:13 Urine Ketones Negative (Negative) 08/25/20 15:13 Urine Blood Negative (Negative) 08/25/20 15:13 Urine Nitrite Negative (Negative) 08/25/20 15:13 Urine Bilirubin Negative (Negative) 08/25/20 15:13 Urine Urobilinogen <2.0 mg/dL (<2.0) 08/25/20 15:13 Ur Leukocyte Esterase Negative (Negative) 08/25/20 15:13 Urine RBC <1 /hpf (0-5) 08/25/20 15:13 Urine WBC 5 /hpf (0-5) 08/25/20 15:13 Urine WBC Clumps Few /hpf (None) H 08/25/20 15:13 Urine Bacteria Rare /hpf (None) H 08/25/20 15:13 Urine Mucus Few /hpf (None) H 08/25/20 15:13 Urine Yeast (Budding) Occasional /hpf (None) H 08/25/20 15:13 Urine Opiates Screen Not Detected (NotDetected) 08/25/20 15:13 Ur Oxycodone Screen Not Detected (NotDetected) 08/25/20 15:13 Urine Methadone Screen Not Detected (NotDetected) 08/25/20 15:13 Ur Propoxyphene Screen Not Detected (NotDetected) 08/25/20 15:13 Ur Barbiturates Screen Not Detected (NotDetected) 08/25/20 15:13 Valproic Acid 93.6 ug/mL 09/01/20 07:51 U Tricyclic Antidepress Not Detected (NotDetected) 08/25/20 15:13 Ur Phencyclidine Scrn Not Detected (NotDetected) 08/25/20 15:13 Ur Amphetamines Screen Detected (NotDetected) H 08/25/20 15:13 U Methamphetamines Scrn Not Detected (NotDetected) 08/25/20 15:13 U Benzodiazepines Scrn Detected (NotDetected) H 08/25/20 15:13 Urine Cocaine Screen Not Detected (NotDetected) 08/25/20 15:13 U Marijuana (THC) Screen Detected (NotDetected) H 08/25/20 15:13 Coronavirus (PCR) Not Detected (Not Detectd) 08/25/20 22:50 Vital Signs Temp 97.4 F L 09/01/20 00:21 Pulse 87 09/01/20 00:21 Resp 16 09/01/20 00:21 BP 110/72 09/01/20 00:21 Pulse Ox 98 08/29/20 06:32 Allergies Allergy/AdvReac Type Severity Reaction Status Date / Time Penicillins Allergy Rash/Hives Verified 08/25/20 16:11 [email or web address] From Chantix AdvReac Unknown Verified 08/25/20 16:11 Patient Condition at Discharge: Stable Plan - Discharge Summary Discharge Rx Participant: No New Discharge Prescriptions: New Divalproex ER [Depakote ER] 750 mg PO HS 30 Days tab.er.24h Nicotine 14Mg/24Hr Patch [Habitrol] 1 patch TRANSDERM DAILY 30 Days patch Paliperidone [Invega] 6 mg PO HS 30 Days tab.er.24 Continue buprenorphine HCL [Subutex] 4 mg SL BID Discontinued Dextroamphetamine/Amphetamine [Adderall] 20 mg PO BID ALPRAZolam [Xanax] 2 mg PO TID Ondansetron HCl [Zofran] 4 mg PO TID PRN PRN Reason: Nausea And Vomiting Discharge Medication List buprenorphine HCL [Subutex] 4 mg SL BID 08/25/20 [History] Divalproex ER [Depakote ER] 750 mg PO HS 30 Days tab.er.24h 09/01/20 [Rx] Nicotine 14Mg/24Hr Patch [Habitrol] 1 patch TRANSDERM DAILY 30 Days patch 09/01/20 [Rx] Paliperidone [Invega] 6 mg PO HS 30 Days tab.er.24 09/01/20 [Rx] Follow up Appointment(s)/Referral(s): Wilbur Deluca MD [Primary Care Provider] - 1-2 days Activity/Diet/Wound Care/Special Instructions: Activity and diet as tolerated. Avoid the use of street drugs and alcohol. Take all medications as prescribed. When you are in need of refills on your medications please contact your medical provider and/or outpatient psychiatrist to have this done. Please go to scheduled outpatient appointment for aftercare treatment. If symptoms return or become worse, call the crisis line at and/or go to the nearest emergency room for evaluation. Discharge Disposition: HOME SELF-CARE
== END 2020-09-01 12:45 | disposition home or self-care (01) | DRG 885 ==
LOC: EC 14:33 → 3MHU 08-26 01:23
PROVIDERS: ADMIT Psychiatry & Neurology Psychiatry; ATTEND Psychiatry & Neurology Psychiatry
DX: F25.0 Schizoaffective disorder, bipolar type (principal); E78.5 Hyperlipidemia, unspecified; F17.200 Nicotine dependence, unspecified, uncomplicated; F20.0 Paranoid schizophrenia; F81.9 Developmental disorder of scholastic skills, unspecified; F90.9 Attention-deficit hyperactivity disorder, unspecified type; Z20.822 Contact with and (suspected) exposure to COVID-19
CPT/HCPCS: 80053; 80164; 80306; 81001; 82075; 87635; 96372; 99285

== ENCOUNTER 2020-09-02 13:17 | Inpatient (IN) | payer MEDICARE, OTHER ==
[2020-09-02 15:25] LABS: Amphetamine Screen,Urine Detected (NotDetected); Barbiturate Screen,Urine Not Detected (NotDetected); Benzodiazepines Screen,Urine Detected (NotDetected); Cocaine Screen,Urine Not Detected (NotDetected); Methadone Screen, Urine Not Detected (NotDetected); Opiate Screen,Urine Not Detected (NotDetected); Oxycodone Screen, Urine Not Detected (NotDetected); Phencyclidine Screen,Urine Not Detected (NotDetected); Tricyclic Antidepressant,Urine Not Detected (NotDetected); Urn Cannabinoid Scrn Detected (NotDetected)
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
[2020-09-02] MEDS ORDERED: HALOPERIDOL LACTATE 5 MG/ML 1 ML VIAL IM STA (15:37)
[2020-09-02] MEDS ORDERED: LORazepam 2 MG/ML INJ IM STA ×2 (15:38→16:55)
[2020-09-02] MEDS ORDERED: diphenhydrAMINE 50 MG/ML 1 ML VIAL IM STA (16:54)
[2020-09-02] MEDS ORDERED: MAGNESIUM HYDROXIDE 2,400 MG/10 ML CUP PO PRN (17:30)
[2020-09-02] MEDS ORDERED: ACETAMINOPHEN TAB 325 MG TAB PO PRN (17:30)
[2020-09-02] MEDS ORDERED: HALOPERIDOL LACTATE 5 MG/ML 1 ML VIAL IM ONE (18:40)
[2020-09-02] MEDS ORDERED: DIVALPROEX ER 250 MG TAB.ER.24H PO SCH (21:00)
[2020-09-03] MEDS: PALIPERIDONE 6 MG TAB.ER.24 PO SCH ×2 (02:02→20:20)
[2020-09-03] MEDS: NON FORMULARY DRUG (Buprenorphine Hcl [Subutex] 8 MG Tab.Subl) SUBLINGUAL SCH ×3 (02:02→11:41)
[2020-09-03] MEDS: NICOTINE 14MG/24HR PATCH TRANSDERM SCH (07:55)
[2020-09-03] MEDS: LORazepam 1 MG TAB PO PRN ×2 (07:56→15:13)
[2020-09-03] MEDS ORDERED: DIVALPROEX ER 250 MG TAB.ER.24H PO STA (14:52)
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
[2020-09-03] MEDS: clonazePAM 0.5 MG TAB PO SCH (20:20)
[2020-09-03 23:06] LABS: Urine Alcohol Negative (Negative); Urine Barbiturate Negative (Negative); Urine Cocaine Negative (Negative); Urine Methadone Negative (Negative); Urine Opiates Negative (Negative); Urine Phencyclidine Negative (Negative)
[2020-09-03] MEDS: traZODone HCL 50 MG TAB PO SCH (23:15)
[2020-09-04] MEDS: BUPRENORPHINE HCL 4 MG SUBLINGUAL SCH ×2 (06:40→17:43)
[2020-09-04] MEDS: LORazepam 1 MG TAB PO PRN ×2 (06:40→16:45)
[2020-09-04] MEDS: NICOTINE 14MG/24HR PATCH TRANSDERM SCH (08:08)
[2020-09-04 08:19] LABS: ALT 35 U/L (4-49); AST 48 U/L (17-59); African American GFR (CKD) >90 (>60 ml/min/1.73 sqM); Albumin 3.6 g/dL (3.5-5.0); Alkaline Phosphatase 54 U/L (38-126); Anion Gap 5 mmol/L; Blood Urea Nitrogen 19 mg/dL (9-20); Calcium 8.8 mg/dL (8.4-10.2); Carbon Dioxide 27 mmol/L (22-30); Chloride 107 mmol/L (98-107); Glucose 94 mg/dL (74-99); Non-African American GFR(CKD) >90 (>60 ml/min/1.73 sqM); Potassium 4.1 mmol/L (3.5-5.1); Sodium 139 mmol/L (137-145); Total Bilirubin 0.4 mg/dL (0.2-1.3); Total Protein 6.1 g/dL (6.3-8.2)
[2020-09-04] MEDS: NICOTINE 21MG/24HR PATCH TRANSDERM SCH (11:38)
[2020-09-04 12:36] LABS: Basophils # (A) 0.1 k/uL (0-0.2); Basophils % (A) 1 %; Eosinophils # (A) 0.3 k/uL (0-0.7); Eosinophils % (A) 3 %; HCT 39.7 % (39.0-53.0); HGB 13.9 gm/dL (13.0-17.5); Lymphocytes # (A) 3.3 k/uL (1.0-4.8); Lymphocytes % (A) 37 %; MCH 30.1 pg (25.0-35.0); MCHC 35.1 g/dL (31.0-37.0); MCV 85.6 fL (80.0-100.0); Mean Platelet Volume 9.1; Monocytes # (A) 0.5 k/uL (0-1.0); Monocytes % (A) 5 %; Neutrophils # (A) 4.7 k/uL (1.3-7.7); Neutrophils % (A) 53 %; Platelet Count 222 k/uL (150-450); RBC 4.64 m/uL (4.30-5.90); RDW 12.9 % (11.5-15.5); WBC 8.8 k/uL (3.8-10.6)
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
--- NOTE | 2020-09-04 19:34 | CONS ---
CONSULTATION CHIEF COMPLAINT: Psychosis. HISTORY OF PRESENT ILLNESS: This is another recent admission for this 34-year-old white male who was in the psych unit, went home, and then came back immediately. REVIEW OF SYSTEMS: He is agitated and inappropriate and expressing paranoid delusions and thoughts. Past medical history, family history, personal and social histories are otherwise unremarkable noncontributory and extremities are normal. Neurologically he seemed to be intact. PHYSICAL EXAM: Blood pressure is 108/64 with a pulse of 101. He is afebrile. In general he appeared to be well developed, well nourished, in no acute distress. Skin color is normal. Skin is warm, dry. Head, ears, eyes, nose, mouth and throat were normal. Neck veins are not distended. Thyroid not enlarged. CHEST: Clear. Cardiac exam is normal. Abdomen is soft, nontender. IMPRESSION: 1. Paranoid delusions. 2. History of substance abuse. RECOMMENDATIONS: None at this time. Thank you for this consultation. MMODL / IJN: [id number] /
[2020-09-04] MEDS: traZODone HCL 50 MG TAB PO SCH (20:47)
[2020-09-04] MEDS: PALIPERIDONE 6 MG TAB.ER.24 PO SCH (20:47)
[2020-09-04] MEDS: clonazePAM 0.5 MG TAB PO SCH (20:47)
[2020-09-04] MEDS: DIVALPROEX ER 250 MG TAB.ER.24H PO SCH (20:47)
[2020-09-05] MEDS: BUPRENORPHINE HCL 4 MG SUBLINGUAL SCH ×2 (06:41→17:50)
[2020-09-05] MEDS: NICOTINE 21MG/24HR PATCH TRANSDERM SCH (08:12)
[2020-09-05] MEDS: LORazepam 1 MG TAB PO PRN ×3 (08:13→23:02)
[2020-09-05] MEDS ORDERED: HALOPERIDOL LACTATE 5 MG/ML 1 ML VIAL IM PRN (11:39)
--- NOTE | 2020-09-05 11:40 | P.PN ---
Progress Note - Text Progress Note Date: 09/05/20 Interval History: Patient was seen in his room and was directable and agreeable to speak with medical technical writer in the office. The patient continues to endorse grandiose and bizarre delusions. He is also very paranoid. He continues to maintain that he has millions of dollars that he has made through the stock market, but coin, and other cryptocurrencies. He later goes on tangents stating that there is people were attempting to make him a scapegoat and screw him over as he "broke the stock market." He was admitted to this hospital because he was very paranoid regarding who took his cell phone despite much redirection. He continues to maintain that there is nothing wrong with him and that he really did break the stock market. At this time, the patient is not reporting any suicidal or homicidal ideation, intention, and/or plan. He is not reporting any auditory or visual hallucinations. Denies any paranoia or other delusions. He has been adherent with his medications and is reporting sweaty palms as a side effect. Mental Status Exam: General Appearance: Patient appears to be stated age is alert, directable, and intermittently cooperative. He appears to be wearing the same clothes with multiple layers. Behavior: Patient is calmly seated without any agitated behavior. Psychomotor activity is elevated. Eye contact is intense. Speech: Patient's speech is fluent and nonpressured. Repetitive. Spontaneous. Mood/Affect: Mood is "I don't need to be here." Affect is irritable and confused. Suicidality/Homicidality: Patient denies having any suicidal or homicidal ideation intent or plan. Perceptions: Patient denies any visual hallucinations and denies any auditory hallucinations Though content/process: Patient continues endorse bizarre and grandiose delusions. Thought process with loose associations and paranoia. Memory and concentration: AOX3, grossly intact for the purposes of this session Judgment and insight: Very poor Assessment Schizoaffective disorder, bipolar type Cannabis Abuse Nicotine dependence Plan: -Patient continues to meet criteria for inpatient psychiatric admission for symptom stabilization and safety. Patient is under a deferral. -Medications: Continue Klonopin 0.5 mg by mouth at bedtime for anxiety. We'll gradually taper this medication. Continue Depakote 750 mg by mouth at bedtime for mood stabilization. Depakote level 69.1 upon admission. Increase Invega to 9 mg by mouth at bedtime for mood stabilization/psychosis. Continue trazodone 50 mg daily at bedtime for insomnia. -When necessary Ativan and Haldol for agitation/aggression. -NRT - nicotine patch -SW on board for discharge planning. Encouraged the patient to participate in milieu.
[2020-09-05 14:33] LABS: Appearance,Urine Clear (Clear); Bilirubin,Urine Negative (Negative); Blood,Urine Negative (Negative); Color,Urine Colorless; Glucose,Urine (UA) Negative (Negative); Ketones,Urine Negative (Negative); Leukocyte Esterase,Urine Negative (Negative); Nitrite,Urine Negative (Negative); Protein,Urine Negative (Negative); Urobilinogen,Urine <2.0 mg/dL (<2.0)
[2020-09-05 14:48] LABS: Specific Gravity,Urine 1.003 (1.001-1.035)
[2020-09-05] MEDS: MAG HYDROX/AL HYDROX/SIMETH 30 ML CUP PO PRN (18:08)
--- NOTE | 2020-09-05 19:02 | PN ---
PROGRESS NOTE DATE OF SERVICE: 09/05/2020 CHIEF COMPLAINT: Right lower quadrant abdominal pain. HISTORY OF PRESENT ILLNESS: This young man is apparently complaining of some right lower quadrant pain without any fever, chills, nausea, diarrhea, urinary complaints, etc. PHYSICAL EXAMINATION: Physical exam was normal with no tenderness or masses. IMPRESSION: Right lower quadrant pain. PLAN: UA and C and S and continue to monitor. MMODL / IJN: [id number] /
[2020-09-05] MEDS: traZODone HCL 50 MG TAB PO SCH (20:48)
[2020-09-05] MEDS: DIVALPROEX ER 250 MG TAB.ER.24H PO SCH (20:48)
[2020-09-05] MEDS: PALIPERIDONE 3 MG TAB.ER.24 PO SCH (20:48)
[2020-09-05] MEDS: clonazePAM 0.5 MG TAB PO SCH (20:48)
--- NOTE | 2020-09-05 22:56 | CONS ---
CONSULTATION DATE OF SERVICE: 09/05/2020 CHIEF COMPLAINT: Paranoid delusions. HISTORY OF PRESENT ILLNESS: This is another admission for this 34-year-old white male. He was in the hospital last week, left and bounced right back. He is awake and alert and he is not suicidal or homicidal, but he is delusional and paranoid. REVIEW OF SYSTEMS: He denies any medical symptoms including headache, visual changes, chest pain, shortness of breath, abdominal pain, nausea, vomiting, etc. Past medical history, family history and personal and social histories are all unchanged from previous admitting discharge summaries. He is on Suboxone, Adderall, and Xanax. PHYSICAL EXAMINATION: Blood pressure is 115/65 with a pulse of 73, respirations of 16 and he is afebrile. In general, he appeared to be slender and in no acute distress. Skin color is normal skin is warm, dry. Head, ears, eyes, nose, mouth and throat are normal. Chest is clear. Cardiac exam is normal. Abdomen is flat, soft and nontender. Extremities: Normal. Neurologically he is intact. IMPRESSION: 1. Paranoid delusions. 2. History of substance abuse. RECOMMENDATIONS: None at this time. Thank you respectfully. MMODL / IJN: [id number] /
[2020-09-06] MEDS: BUPRENORPHINE HCL 4 MG SUBLINGUAL SCH ×2 (05:56→18:14)
[2020-09-06] MEDS: LORazepam 1 MG TAB PO PRN ×3 (06:37→23:01)
[2020-09-06] MEDS: NICOTINE 21MG/24HR PATCH TRANSDERM SCH (06:37)
--- NOTE | 2020-09-06 10:30 | P.PN ---
Progress Note - Text Progress Note Date: 09/06/20 Interval History: Patient was seen in his room and was directable and agreeable to speak with junior copywriter in his room. The patient is less forthcoming with any of his grandiose bizarre delusions today. He is currently not reporting any suicidal or homicidal ideation, intention, and/or plan. He is not reporting any auditory or visual hallucinations. When inquiring about the events leading to this hospitalization, the patient maintains that he acted appropriately as he was concerned that people of taking his phone. Despite this, when inquiring about the 100s of millions of dollars that he has in his possession, the patient states that "it is all gone, and can't do anything about it." He denies being upset. He reports no issues with appetite. He denies any issues with sleep. He has been adherent with his medications is not reporting any significant side effects at this time. Mental Status Exam: General Appearance: Patient appears to be stated age is alert, directable, and intermittently cooperative. He appears to be wearing the same clothes with multiple layers. Behavior: Patient is calmly seated without any agitated behavior. Psychomotor activity appears normal. Eye contact is intense. Speech: Patient's speech is fluent and nonpressured. Slight slurred speech. Mood/Affect: Mood is "feeling okay." Affect is with appropriate range and euthymic. Suicidality/Homicidality: Patient denies having any suicidal or homicidal ideation intent or plan. Perceptions: Patient denies any visual hallucinations and denies any auditory hallucinations Though content/process: The patient is less forthcoming with any grandiose or bizarre delusions.. Thought process appears to be linear and logical Memory and concentration: AOX3, grossly intact for the purposes of this session Judgment and insight: Mildly improving Assessment Schizoaffective disorder, bipolar type Cannabis Abuse Nicotine dependence Plan: -Patient continues to meet criteria for inpatient psychiatric admission for symptom stabilization and safety. Patient is under a deferral. -Medications: Continue Klonopin 0.5 mg by mouth at bedtime for anxiety. We'll gradually taper this medication. Continue Depakote 750 mg by mouth at bedtime for mood stabilization. Depakote level 69.1 upon admission. Continue Invega 9 mg by mouth at bedtime for mood stabilization/psychosis. Continue trazodone 50 mg daily at bedtime for insomnia. -When necessary Ativan and Haldol for agitation/aggression. -NRT - nicotine patch -SW on board for discharge planning. Encouraged the patient to participate in milieu.
[2020-09-06] MEDS: MAG HYDROX/AL HYDROX/SIMETH 30 ML CUP PO PRN ×2 (10:50→18:16)
[2020-09-06] MEDS: clonazePAM 0.5 MG TAB PO SCH (20:29)
[2020-09-06] MEDS: DIVALPROEX ER 250 MG TAB.ER.24H PO SCH (20:29)
[2020-09-06] MEDS: PALIPERIDONE 3 MG TAB.ER.24 PO SCH (20:29)
[2020-09-06] MEDS: traZODone HCL 50 MG TAB PO SCH (20:29)
[2020-09-07] MEDS: BUPRENORPHINE HCL 4 MG SUBLINGUAL SCH ×2 (06:30→17:07)
[2020-09-07] MEDS: LORazepam 1 MG TAB PO PRN ×2 (06:38→16:19)
[2020-09-07] MEDS: NICOTINE 21MG/24HR PATCH TRANSDERM SCH (06:38)
[2020-09-07] MEDS: MAG HYDROX/AL HYDROX/SIMETH 30 ML CUP PO PRN ×2 (10:38→17:23)
--- NOTE | 2020-09-07 11:44 | P.PN ---
Progress Note - Text Progress Note Date: 09/07/20 Interval History: Patient was seen in his room and was directable and agreeable to speak with credit underwriter in the office. The patient continues to endorse some grandiose and bizarre delusions. This has been somewhat clarified with his mother who was present on a conference call with the patient also in the room. The patient was subject to a scam over the phone. The patient maintains that he did have millions of dollars through smart investing but the mother continues to ch allenge that the patient does not have this money as he does not have enough capital to even invest. The patient was also noted to be very grandiose and bizarre when speaking with [facility] yesterday. He is agreeable to taking medications. He continues to maintain that he does not need any inpatient psychiatric treatment and was requesting discharge. He is not reporting any auditory or visual hallucinations. He is denying any suicidal or homicidal ideation, intention, and/or plan. He has been adherent to his medications not reporting any significant side effects at this time. Mental Status Exam: General Appearance: Patient appears to be stated age is alert, directable, and intermittently cooperative. Fair hygiene and grooming. Behavior: Patient is calmly seated without any agitated behavior. Psychomotor activity appears normal. Eye contact is intense. Speech: Patient's speech is fluent and nonpressured. Hyperverbal and repetitive. Mood/Affect: Mood is "ready to go." Affect is with appropriate range and paranoid. Suicidality/Homicidality: Patient denies having any suicidal or homicidal ideation intent or plan. Perceptions: Patient denies any visual hallucinations and denies any auditory hallucinations Though content/process: The patient is endorsing grandiose or bizarre delusions. Thought process appears to be linear but illogical today. Memory and concentration: AOX3, grossly intact for the purposes of this session Judgment and insight: Mildly improving Assessment Schizoaffective disorder, bipolar type Cannabis Abuse Nicotine dependence Plan: -Patient continues to meet criteria for inpatient psychiatric admission for symptom stabilization and safety. Patient is under a deferral. -Medications: Discontinue Klonopin. Continue Depakote 750 mg by mouth at bedtime for mood stabilization. Depakote level 69.1 upon admission. We will cross-titrate Invega with Prolixin. We will decrease Invega to 6 mg by mouth at bedtime and start Prolixin 2 mg by mouth twice a day. Continue trazodone 50 mg daily at bedtime for insomnia. -When necessary Ativan and Haldol for agitation/aggression. -NRT - nicotine patch -SW on board for discharge planning. Encouraged the patient to participate in milieu.
[2020-09-07] MEDS: traZODone HCL 50 MG TAB PO SCH (20:29)
[2020-09-07] MEDS: DIVALPROEX ER 250 MG TAB.ER.24H PO SCH (20:30)
[2020-09-07] MEDS ORDERED: PALIPERIDONE 6 MG TAB.ER.24 PO SCH (21:00)
[2020-09-08] MEDS: LORazepam 1 MG TAB PO PRN ×3 (03:39→20:49)
[2020-09-08] MEDS: BUPRENORPHINE HCL 4 MG SUBLINGUAL SCH ×2 (06:31→17:53)
[2020-09-08] MEDS: NICOTINE 21MG/24HR PATCH TRANSDERM SCH (08:01)
--- NOTE | 2020-09-08 11:25 | P.PN ---
Progress Note - Text Progress Note Date: 09/08/20 Interval History: Patient was seen in his room and was directable and agreeable to speak with commercial insurance underwriter in the office. The patient reports that he is feeling well. The patient is continuing to request for discharge. He is not reporting any suicidal or homicidal ideation, intention, and/or plan. He is not reporting any auditory or visual hallucinations. He continues to endorse some baseline paranoia and some bizarre grandiose thoughts but is a to be less forthcoming at this time. He has been adherent with his medications does not report any significant side effects at this time. He is denying issues with sleep or appetite. He continues to express concern about surveillance but does express that he is going to try his best not to be bothered by it and to focus on what is in front of him. He continues to maintain that he acted appropriately when he was knocking on multiple neighbors doors in search of his cell phone. Mental Status Exam: General Appearance: Patient appears to be stated age is alert, directable, and cooperative. Fair hygiene and grooming. Behavior: Patient is calmly seated without any agitated behavior. Psychomotor activity appears normal. Appropriate eye contact. Speech: Patient's speech is fluent and nonpressured. Less hyperverbal. He continues to be somewhat repetitive. Mood/Affect: Mood is "ready to go." Affect is appropriate and euthymic. Suicidality/Homicidality: Patient denies having any suicidal or homicidal ideation intent or plan. Perceptions: Patient denies any visual hallucinations and denies any auditory hallucinations Though content/process: The patient is endorsing grandiose or bizarre delusions. Continues to be somewhat illogical. Memory and concentration: AOX3, grossly intact for the purposes of this session Judgment and insight: Mildly improving Assessment Schizoaffective disorder, bipolar type Cannabis Abuse Nicotine dependence Plan: -Patient continues to meet criteria for inpatient psychiatric admission for symptom stabilization and safety. Patient is under a deferral. -Medications: Continue Depakote 750 mg by mouth at bedtime for mood stabilization. Depakote level 69.1 upon admission. We will cross-titrate Invega with Prolixin. We will decrease Invega to 3 mg by mouth at bedtime and start Prolixin 3 mg by mouth twice a day. Continue trazodone 50 mg daily at bedtime for insomnia. -When necessary Ativan and Haldol for agitation/aggression. -NRT - nicotine patch -SW on board for discharge planning. Encouraged the patient to participate in milieu.
[2020-09-08] MEDS: MAG HYDROX/AL HYDROX/SIMETH 30 ML CUP PO PRN ×2 (14:28→21:30)
[2020-09-08] MEDS: DIVALPROEX ER 250 MG TAB.ER.24H PO SCH (20:46)
[2020-09-08] MEDS: traZODone HCL 50 MG TAB PO SCH (20:47)
[2020-09-08] MEDS ORDERED: PALIPERIDONE 3 MG TAB.ER.24 PO SCH (21:00)
[2020-09-09] MEDS: BUPRENORPHINE HCL 4 MG SUBLINGUAL SCH ×2 (06:00→18:50)
[2020-09-09] MEDS: NICOTINE 21MG/24HR PATCH TRANSDERM SCH (09:10)
--- NOTE | 2020-09-09 12:02 | P.PN ---
Progress Note - Text Progress Note Date: 09/09/20 Interval History: Patient was seen in his room and was directable and agreeable to speak with procedure writer in the office. The patient states that he is feeling well. He is not reporting any suicidal or homicidal ideation, intention, and/or plan. He is not reporting any auditory or visual hallucinations. Currently, the patient is less forthcoming with any delusions and is not reporting any significant delusions of paranoia or grandiosity. He reports that he has been adherent with his medications and not reporting any significant side effects at this time. The patient denies any issues with sleep or appetite. The patient is looking forward to discharge on Saturday. Mental Status Exam: General Appearance: Patient appears to be stated age is alert, directable, and cooperative. Fair hygiene and grooming. Behavior: Patient is calmly seated without any agitated behavior. Psychomotor activity appears normal. Appropriate eye contact. Speech: Patient's speech is fluent and nonpressured. Normal rate, volume, and tone. Spontaneous. Mood/Affect: Mood is "feeling okay." Affect is appropriate and euthymic. Suicidality/Homicidality: Patient denies having any suicidal or homicidal ideation intent or plan. Perceptions: Patient denies any visual hallucinations and denies any auditory hallucinations Though content/process: Today, the patient's not reporting any delusional thought content. Thought process appears to be linear and logical in short conversation. Memory and concentration: AOX3, grossly intact for the purposes of this session Judgment and insight: Mildly improving Assessment Schizoaffective disorder, bipolar type Cannabis Abuse Nicotine dependence Plan: -Patient continues to meet criteria for inpatient psychiatric admission for symptom stabilization and safety. Patient is under a deferral. -Medications: Continue Depakote 750 mg by mouth at bedtime for mood stabilization. Depakote level 69.1 upon admission. Discontinue Invega. Increase Prolixin to 3 mg by mouth twice a day for mood stabilization/psychosis. This will be gradually titrated over the weekend to a final dose of 4 mg by mouth twice a day. Continue trazodone 50 mg daily at bedtime for insomnia. -When necessary Ativan and Haldol for agitation/aggression. -NRT - nicotine patch -SW on board for discharge planning. Encouraged the patient to participate in milieu.
[2020-09-09] MEDS: LORazepam 1 MG TAB PO PRN ×2 (12:05→18:51)
[2020-09-09] MEDS: MAG HYDROX/AL HYDROX/SIMETH 30 ML CUP PO PRN (18:52)
[2020-09-09] MEDS: traZODone HCL 50 MG TAB PO SCH (20:34)
[2020-09-09] MEDS: DIVALPROEX ER 250 MG TAB.ER.24H PO SCH (20:34)
[2020-09-10] MEDS: BUPRENORPHINE HCL 4 MG SUBLINGUAL SCH ×2 (06:53→17:47)
[2020-09-10] MEDS: NICOTINE 21MG/24HR PATCH TRANSDERM SCH (07:55)
[2020-09-10] MEDS: LORazepam 1 MG TAB PO PRN ×2 (07:56→16:24)
[2020-09-10 08:01] VITALS: RESP 16
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
[2020-09-10] MEDS: DIVALPROEX ER 250 MG TAB.ER.24H PO SCH (20:44)
[2020-09-10] MEDS: traZODone HCL 50 MG TAB PO SCH (20:45)
[2020-09-11] MEDS: BUPRENORPHINE HCL 4 MG SUBLINGUAL SCH ×2 (07:11→18:34)
[2020-09-11] MEDS: NICOTINE 21MG/24HR PATCH TRANSDERM SCH (07:50)
[2020-09-11] MEDS: LORazepam 1 MG TAB PO PRN ×3 (10:44→20:51)
--- NOTE | 2020-09-11 12:49 | P.PN ---
Progress Note - Text Progress Note Date: 09/11/20 Interval History: Patient was seen wandering the hallways and was directable and agreeable to speak with travel writer. Per ER records this 34-year-old male with a recent admission for psychosis is back with petition by police and he is demonstrating flight of ideas some paranoia. He believes he is being tracked by his phone by the [employer] address. He believes he crashed the market. Patient denies any side effects from the medications and has been compliant with meds. Patient stated that "he was thinking all night during his sleep". Mental Status Exam: General Appearance: Patient appears to be stated age is alert, directable, and cooperative. Behavior: Patient is without any agitated behavior. Speech: Patient's speech is fluent and nonpressured. Mood/Affect: Mood is improving mildly, affect is constricted. Suicidality/Homicidality: Patient denies having any suicidal or homicidal ideation intent or plan. Perceptions: Patient denies any visual hallucinations and denies any auditory hallucinations Though content/process: There is some evidence of delusional thought content. Memory and concentration: AOX3, grossly intact for the purposes of this session Judgment and insight: Improving mildly Assessment This patient still shows symptoms of psychosis with mild improvement Plan: -Patient continues to meet criteria for inpatient psychiatric admission for symptom stabilization and safety. -Medications: Patient stated he is compliant with his medications. -When necessary Ativan and Haldol for agitation/aggression. -SW on board for discharge planning. Encouraged the patient to participate in milieu.
[2020-09-11] MEDS: MAG HYDROX/AL HYDROX/SIMETH 30 ML CUP PO PRN (18:35)
[2020-09-11] MEDS: DIVALPROEX ER 250 MG TAB.ER.24H PO SCH (20:51)
[2020-09-11] MEDS: traZODone HCL 50 MG TAB PO SCH (20:52)
[2020-09-12] MEDS: BUPRENORPHINE HCL 4 MG SUBLINGUAL SCH (06:35)
[2020-09-12] MEDS: NICOTINE 21MG/24HR PATCH TRANSDERM SCH (08:26)
[2020-09-12 09:11] VITALS: TEMP 97.9
[2020-09-12] MEDS: LORazepam 1 MG TAB PO PRN (09:46)
[2020-09-12 09:48] VITALS: BP 119/73; PULSE 99
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
== END 2020-09-12 12:49 | disposition home or self-care (01) | DRG 885 ==
LOC: EC 13:17 → 3MHU 17:25
PROVIDERS: ADMIT Psychiatry & Neurology Psychiatry; ATTEND Psychiatry & Neurology Psychiatry
DX: F25.0 Schizoaffective disorder, bipolar type (principal); C73 Malignant neoplasm of thyroid gland; E78.5 Hyperlipidemia, unspecified; F12.10 Cannabis abuse, uncomplicated; F17.200 Nicotine dependence, unspecified, uncomplicated; F41.9 Anxiety disorder, unspecified; F81.9 Developmental disorder of scholastic skills, unspecified; F90.9 Attention-deficit hyperactivity disorder, unspecified type; G40.909 Epilepsy, unspecified, not intractable, without status epilepticus; G47.00 Insomnia, unspecified; Z79.899 Other long term (current) drug therapy; Z20.822 Contact with and (suspected) exposure to COVID-19
CPT/HCPCS: 80053; 80164; 80306; 81003; 82075; 84443; 85025; 87635; 96372; 99285

== ENCOUNTER → 2020-11-28 | Outpatient (CLI) | payer MEDICARE, OTHER ==
[2020-11-28 19:46] LABS: Hepatitis A Antibody IgM Non-Reactive (Non-Reactive); Hepatitis B Core IgM Non-Reactive (Non-Reactive); Hepatitis B Surface Antigen Non-Reactive (Non-Reactive); Hepatitis C IgG Antibody Reactive (Non-Reactive)
== END | disposition home or self-care (01) ==
LOC: LABWHC1 13:16
PROVIDERS: ATTEND Family Medicine
DX: B19.20 Unspecified viral hepatitis C without hepatic coma (principal)
CPT/HCPCS: 36415; 80074; 87522

== ENCOUNTER → 2021-02-27 | Outpatient (CLI) | payer MEDICARE, OTHER ==
[2021-02-27 19:48] LABS: HGB 13.9 g/dL (13.0-17.0); MCHC 34.8 g/dL (32.0-37.0); MCV 83.3 fL (80.0-97.0); Platelet Count 194 X 10*3/uL (140-440); RDW 12.7 % (11.5-14.5); WBC 6.35 X 10*3/uL (4.50-10.00)
[2021-02-27 19:49] LABS: Basophils # (A) 0.04 X 10*3/uL (0.00-0.10); Basophils % (A) 0.6 %; Eosinophils # (A) 0.24 X 10*3/uL (0.04-0.35); Eosinophils % (A) 3.8 %; Lymphocytes # (A) 2.38 X 10*3/uL (0.90-5.00); Lymphocytes % (A) 37.5 %; Mean Platelet Volume 10.4 fL (9.5-12.2); Monocytes # (A) 0.37 X 10*3/uL (0.20-1.00); Monocytes % (A) 5.8 %
[2021-02-28 15:49] LABS: African American GFR (CKD) 136.3 (60.0-200.0); Albumin 4.4 g/dL (3.8-4.9); Albumin/Globulin Ratio 1.55 (1.60-3.17); BUN/Creat Ratio 15.73 Ratio (12.00-20.00); Blood Urea Nitrogen 12.1 mg/dL (9.0-27.0); Calcium 9.7 mg/dL (8.7-10.3); Carbon Dioxide 25.1 mmol/L (21.6-31.8); Globulin 2.9 g/dL (1.6-3.3); Non-African American GFR(CKD) 117.6 (60.0-200.0); Potassium 4.3 mmol/L (3.5-5.5); Total Bilirubin 0.6 mg/dL (0.30-1.20); Total Protein 7.3 g/dL (6.2-8.2)
== END | disposition home or self-care (01) ==
LOC: LABWHC1 13:57
PROVIDERS: ATTEND Internal Medicine Gastroenterology
DX: B18.2 Chronic viral hepatitis C (principal)
CPT/HCPCS: 36415; 80053; 85025; 87522

== ENCOUNTER → 2021-04-21 | Outpatient (CLI) | payer MEDICARE, OTHER ==
--- NOTE | 2021-04-21 10:21 | US ---
EXAMINATION TYPE: US thyroid st tissue head/neck DATE OF EXAM: 04/21/2021 COMPARISON: Ultrasound July 24, 2019 CLINICAL HISTORY: R59.0 Lymphadenopathy of left cervical region. GLAND SIZE: Right Lobe: 5.1x1.8x1.9 cm Overall Parenchyma: homogenous Left Lobe: 4.5x1.6x2.1 cm Overall Parenchyma: homogeneous Isthmus Thickness: 0.2 cm NODULES RIGHT: # of nodules measured on right: 0 LEFT: # of nodules measured on left: 1 1. 2.0 X 1.6 x 1.5 cm, mid mid, solid or almost completely solid, hypoechoic nodule, which is wider than tall, with lobulated or irregular margins, with echogenic foci. Prior size: 1.6 x 1.1 x 1.2 cm overall stable accounting for technical differences and was sampl ed and 01/07/2020. Correlate clinically. ISTHMUS: # of nodules measured in the isthmus: 0 Bilateral neck scanned, Multiple enlarged irregular lymph nodes seen on the left side. largest measur es 4.9x2.6x1.5cm previous largest =3.8x2.1x2.2cm IMPRESSION: Stable sampled left-sided thyroid nodule. No new nodules. Persistent abnormal neck masses or lymph nodes.
== END | disposition home or self-care (01) ==
LOC: RADUSWWP 07:58
PROVIDERS: ATTEND Surgery
DX: R59.0 Localized enlarged lymph nodes (principal)
CPT/HCPCS: 76536

== ENCOUNTER → 2021-08-04 | Outpatient (CLI) | payer MEDICARE, OTHER ==
[2021-08-05 05:08] LABS: ALT 12 U/L (10-49); AST 24 U/L (14-35); African American GFR (CKD) 83.5 (60.0-200.0); Albumin 4.5 g/dL (3.8-4.9); Albumin/Globulin Ratio 1.65 (1.60-3.17); Alkaline Phosphatase 74 U/L (41-126); BUN/Creat Ratio 12.27 Ratio (12.00-20.00); Blood Urea Nitrogen 15.7 mg/dL (9.0-27.0); Calcium 9.9 mg/dL (8.7-10.3); Chloride 105 mmol/L (96-109); Globulin 2.7 g/dL (1.6-3.3); Glucose 97 mg/dL (70-110); Potassium 4.8 mmol/L (3.5-5.5); Sodium 145 mmol/L (135-145); Total Bilirubin <0.15 mg/dL (0.30-1.20); Total Protein 7.1 g/dL (6.2-8.2)
== END | disposition home or self-care (01) ==
LOC: LABWHC1 14:44
PROVIDERS: ATTEND Internal Medicine
DX: E83.51 Hypocalcemia (principal); E89.0 Postprocedural hypothyroidism
CPT/HCPCS: 36415; 80053; 82306; 84439; 84443

== ENCOUNTER → 2021-09-07 | Outpatient (CLI) | payer MEDICARE, OTHER ==
[2021-09-08 02:23] LABS: Calcium 8.9 mg/dL (8.7-10.3); Magnesium 2.1 mg/dL (1.5-2.4); Phosphorus 3.5 mg/dL (2.4-5.1); T4, Free (Free Thyroxine) <0.100 ng/dL (0.800-1.800)
== END | disposition home or self-care (01) ==
LOC: LABWHC1 14:19
PROVIDERS: ATTEND Internal Medicine
DX: C73 Malignant neoplasm of thyroid gland (principal)
CPT/HCPCS: 36415; 82310; 83735; 84100; 84432; 84439; 84443; 86800

== ENCOUNTER → 2021-09-20 | Outpatient (CLI) | payer MEDICARE, OTHER ==
--- NOTE | 2021-09-21 11:27 | NM ---
EXAMINATION TYPE: NM thyroid uptake only single DATE OF EXAM: 09/21/2021 COMPARISON: Thyroid ultrasound April 21, 2021 HISTORY: Thyroid cancer per order. TECHNIQUE: Thyroid iodine uptake is calculated and images performed after the oral administration of 92 uCi 1-123 Capsule. Only 24 hour iodine uptake is performed as requested by ordering physician FINDINGS: The 24-hour iodine uptake is calculated at 2%, diminished from the normal range. (normal ra nge 15-35%). IMPRESSION: Diminished uptake suggestive of hypothyroidism, correlate clinically.
== END | disposition home or self-care (01) ==
LOC: RADNMMAIN 09:57
PROVIDERS: ATTEND Internal Medicine
DX: C73 Malignant neoplasm of thyroid gland (principal)
CPT/HCPCS: 78012; A9516

== ENCOUNTER → 2021-10-18 | Outpatient (CLI) | payer MEDICARE, OTHER ==
[2021-10-19 00:34] LABS: African American GFR (CKD) 107.3 (60.0-200.0); Albumin 4.9 g/dL (3.8-4.9); Albumin/Globulin Ratio 1.74 (1.60-3.17); Anion Gap 14.4 mmol/L (10.00-18.00); BUN/Creat Ratio 11.25 Ratio (12.00-20.00); Blood Urea Nitrogen 11.7 mg/dL (9.0-27.0); Calcium 9.4 mg/dL (8.7-10.3); Carbon Dioxide 25.1 mmol/L (20.0-27.5); Globulin 2.8 g/dL (1.6-3.3); Non-African American GFR(CKD) 92.6 (60.0-200.0); Potassium 4.5 mmol/L (3.5-5.5); T4, Free (Free Thyroxine) 2.44 ng/dL (0.800-1.800); Total Bilirubin 0.7 mg/dL (0.30-1.20); Total Protein 7.8 g/dL (6.2-8.2)
== END | disposition home or self-care (01) ==
LOC: LABWHC1 14:43
PROVIDERS: ATTEND Internal Medicine
DX: C73 Malignant neoplasm of thyroid gland (principal); E03.9 Hypothyroidism, unspecified
CPT/HCPCS: 36415; 80053; 84432; 84439; 84443; 86800

== ENCOUNTER → 2021-11-27 | Outpatient (CLI) | payer MEDICARE, OTHER ==
[2021-11-27 23:56] LABS: Albumin 5.2 g/dL (3.8-4.9); Albumin/Globulin Ratio 1.77 (1.60-3.17); Anion Gap 15.9 mmol/L (10.00-18.00); BUN/Creat Ratio 12.98 Ratio (12.00-20.00); Blood Urea Nitrogen 11.2 mg/dL (9.0-27.0); Calcium 8.3 mg/dL (8.7-10.3); Non-African American GFR(CKD) 112.2 (60.0-200.0); Potassium 4.3 mmol/L (3.5-5.5); T4, Free (Free Thyroxine) 2.32 ng/dL (0.800-1.800); Total Bilirubin 0.6 mg/dL (0.30-1.20); Total Protein 8.2 g/dL (6.2-8.2)
== END | disposition home or self-care (01) ==
LOC: LABWHC1 15:39
PROVIDERS: ATTEND Internal Medicine
DX: E83.51 Hypocalcemia (principal); E03.9 Hypothyroidism, unspecified
CPT/HCPCS: 36415; 80053; 82306; 83970; 84439; 84443

== ENCOUNTER 2021-12-18 20:33 | Inpatient (IN) | payer MEDICARE, MEDICAID ==
[2021-12-18] MEDS ORDERED: LORazepam 2 MG/ML INJ IM STA (21:02)
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
[2021-12-19] MEDS ORDERED: HALOPERIDOL LACTATE 5 MG/ML 1 ML VIAL IM STA (02:17)
[2021-12-19] MEDS ORDERED: MAG HYDROX/AL HYDROX/SIMETH 30 ML CUP PO PRN (03:13)
[2021-12-19] MEDS ORDERED: HALOPERIDOL LACTATE 5 MG/ML 1 ML VIAL IM PRN (03:13)
[2021-12-19] MEDS ORDERED: MAGNESIUM HYDROXIDE 2,400 MG/10 ML CUP PO PRN (03:13)
[2021-12-19] MEDS ORDERED: haloperidoL 5 MG TAB PO PRN (03:18)
[2021-12-19] MEDS ORDERED: LORazepam 2 MG/ML INJ IM PRN (03:19)
[2021-12-19] MEDS: NICOTINE 21MG/24HR PATCH TRANSDERM SCH (08:06)
[2021-12-19] MEDS: LORazepam 1 MG TAB PO PRN ×2 (08:08→18:07)
[2021-12-19] MEDS ORDERED: cloNIDine HCL 0.1 MG TAB PO PRN (11:32)
--- NOTE | 2021-12-19 12:05 | P.HP ---
Psychiatric H&P - . H&P Date: 12/19/21 History & Physical: Allergies Allergy/AdvReac Type Severity Reaction Status Date / Time Penicillins Allergy Rash/Hives Verified 12/18/21 20:35 [email or web address] From Chantix AdvReac Unknown Verified 12/18/21 20:35 Vital Signs Temp 98.1 F 12/19/21 03:20 Pulse 99 12/19/21 03:20 Resp 18 12/19/21 03:20 BP 93/59 12/19/21 03:20 Pulse Ox 97 12/19/21 03:20 FiO2 Intake & Output 12/18/21 12/19/21 12/19/21 18:59 06:59 18:59 Weight 68.209 kg Laboratory Last Values Coronavirus (PCR) Not Detected (Not Detectd) 12/19/21 00:29 12/19/21 11:27 IDENTIFYING DATA: Patient is a 36 yo male, with a history of schizoaffective disorder, currently living alone, SSD, no kids. HPI: Patient presented to the hospital yesterday and was evalauted in the ER for psych evaluation. he was endorsing hallucinations, racing thoughts, delusions. Patient denies any suicidal or homicidal ideations intent or plan. At this time patient denies any auditory or visual hallucinations. Patient denies any flight of ideas racing thoughts and increased in goal directed behavior. He states that he was denied medications, and denied his rights. He was admitted involuntarily to the [facility] on a petition and cert claiming that he was delusional and bizarre. Patient states that he is "being illegally detained for the third time". He states "they all think I'm crazy" and started speaking about evidence against him. He also claims that "evidences being stolen as we speak". He spoke significantly about the financial markets and also Nathalia Schaffer. He claims that he also is involved in a "[place]". He claims that the government is manipulating investments and money. He states that he is angry at this time and he appears to be irritable and frustrated. He appears to have poor hygiene and grooming. He was requesting Xanax and Suboxone at this time and states that he is going through withdrawals. He is endorsing anxiety. He states that his sleep and appetite have been poor. He has very poor insight and judgment. Patient admits to using nicotine products daily, also using THC wax at this time. Denies any other recreational drug use. PAST PSYCHIATRIC HISTORY: Patient states that he has a history of schizoaffective disorder. He used to be on Prolixin Depakote in the past and also Suboxone. Patient was last psychiatrically hospitalized in August 2020 on the mental health unit. Patient denies any psychiatric outpatient follow-up. Patient denies any history of suicide attempts in the past. Past Medical History: Cancer, GERD/Reflux, Hyperlipidemia, Liver Disease, Thyroid Disorder Additional Past Medical History / Comment(s): ADD, Hepatitis C, ALLERGIES: as per EMR CHEMICAL DEPENDENCY HISTORY: as per HPI FAMILY PSYCHIATRIC/SUBSTANCE USE HISTORY: denies SOCIAL HISTORY: Patient was born and raised in [place] and also in [place]. He was fairly uncooperative with the rest of the questions regarding his social history and left the room early. He is currently single, collects SSD. Has no kids. Lives alone in an apartment.. MENTAL STATUS EXAM: General Appearance: Patient appears to be thin, disheveled appearance, stated age is alert, irritable and uncooperative. Patient appears to have poor hygiene and grooming. Behavior: Patient is seated without any agitated behavior. Irritable. Bizarre. Speech: Patient's speech is fluent and nonpressured. Vague. Mood/Affect: Patient reports their mood is depressed and increased, affect is congruent and irritable Suicidality/Homicidality: Patient denies having any homicidal ideation intent or plan. Denies any suicidal ideations intent or plan Perceptions: Patient denies any visual hallucinations and denies any auditory hallucinations Though content/process: Delusional, bizarre. Endorsing significant paranoia. Loose associations. Memory and concentration: AOX3, grossly intact for the purposes of this session. Can spell "WORLD" backwards Judgment and insight: poor STRENGTHS/WEAKNESSES: strength is that patient is resilient. Weakness is that patient has poor judgment and is impulsive INTELLECT: average IMPRESSIONS: Schizoaffective disorder, bipolar type Cannabis use disorder Nicotine dependence PLAN: -Patient is admitted under involuntary status to MHU for stabilization of psychiatric symptoms and safety. Patient has not signed adult voluntary form and medication consent and is placed in patient's chart. A second certification was completed and along with petition will be filed for court. -Medications : Will start patient on Prolixin 3 mg twice a day for psychosis. Trazodone 50 mg daily at bedtime for mood/insomnia. -Ativan and Haldol PRN for agitation/aggression -Patient was counselled on substance abuse and desired to cut back on use -Patient was informed of the risks, benefits and side effects of the medication and patient verbally consented to taking the medications. Patient signed med consent form and was placed in chart. -Internal Medicine consult to perform medical evaluation and physical. -NRT - nicotine patch -SW on board for discharge planning. Encourage patient to participate in groups to work on coping skills. Will await deferral and court date.] [] 12/19/21 11:38 12/19/21 12:05
[2021-12-19] MEDS: BENZTROPINE MESYLATE 1 MG TAB PO SCH ×2 (13:22→20:55)
[2021-12-19 18:38] LABS: Appearance,Urine Cloudy (Clear); Bilirubin,Urine 1+ (Negative); Blood,Urine Negative (Negative); Color,Urine Yellow; Glucose,Urine (UA) 1+ (Negative); Ketones,Urine Negative (Negative); Leukocyte Esterase,Urine Negative (Negative); Mucus,Urine Many /hpf; Nitrite,Urine Negative (Negative); PH, Urine 6.5 (5.0-8.0); Protein,Urine 3+ (Negative); RBC,Urine 2 /hpf (0-5); Specific Gravity,Urine 1.035 (1.001-1.035); WBC,Urine 6 /hpf (0-5)
[2021-12-19 18:42] LABS: Amphetamine Screen,Urine Detected (NotDetected); Barbiturate Screen,Urine Not Detected (NotDetected); Benzodiazepines Screen,Urine Detected (NotDetected); Cocaine Screen,Urine Not Detected (NotDetected); Methadone Screen, Urine Not Detected (NotDetected); Opiate Screen,Urine Not Detected (NotDetected); Oxycodone Screen, Urine Not Detected (NotDetected); Phencyclidine Screen,Urine Not Detected (NotDetected); Tricyclic Antidepressant,Urine Not Detected (NotDetected); Urn Cannabinoid Scrn Detected (NotDetected)
[2021-12-19] MEDS: traZODone HCL 50 MG TAB PO SCH (20:55)
--- NOTE | 2021-12-20 02:04 | CONS ---
CONSULTATION CHIEF COMPLAINT: Acute psychosis. HISTORY OF PRESENT ILLNESS: This is another admission for this 36-year-old white male, schizophrenic, who also has history of substance abuse. He has been coming in to the office for last couple of years and doing fairly well on Suboxone program from time to time, he becomes very agitated and hyperactive and at times, psychotic. Apparently came back to the emergency room with acute psychosis. REVIEW OF SYSTEMS: At present time, he is asleep and difficult to arouse. Past medical history, family history, and personal and social histories are significant, in that he is allergic to penicillin and Chantix. MEDICATIONS: He is on, 1. Seroquel 200 mg h.s. 2. Unithroid 150 mcg a day. 3. MiraLAX. 4. Calcium. 5. Gabapentin 300 mg t.i.d. 6. Zofran 4 mg p.r.n. 7. Xanax 2 mg t.i.d. 8. Buprenorphine sublingual 8 mg 1/2 tablet once a day. 9. Adderall 20 mg 1.5 mg twice a day. He has been fairly compliant on this regimen and has maintained in past good drug screens. Remainder of his history is unremarkable. He does use marijuana. He recently underwent a thyroidectomy for cancer. PHYSICAL EXAMINATION: VITAL SIGNS: Blood pressure 138/72 with a pulse of 100, respirations of 18. He is afebrile. GENERAL: Exam was incomplete because he was asleep. HEENT: Head, ears, eyes, nose and mouth were normal. CHEST: Clear. CARDIAC: Exam is normal. ABDOMEN: Soft. EXTREMITIES: Normal. IMPRESSION: 1. Acute psychosis. 2. Schizophrenia. 3. History of bipolar depression. 4. History of substance abuse. 5. History of carcinoma of the thyroid. RECOMMENDATIONS: None at this time. MMODL / IJN: [id number] /
[2021-12-20] MEDS ORDERED: BENZTROPINE 2 MG/2 ML AMP IM STA (03:33)
[2021-12-20] MEDS ORDERED: BENZTROPINE MESYLATE 1 MG TAB PO PRN (03:34)
[2021-12-20] MEDS ORDERED: BENZTROPINE 2 MG/2 ML AMP IM PRN (03:34)
[2021-12-20] MEDS: NICOTINE 21MG/24HR PATCH TRANSDERM SCH (08:18)
[2021-12-20] MEDS: BENZTROPINE MESYLATE 1 MG TAB PO SCH ×2 (08:19→21:25)
[2021-12-20] MEDS: LORazepam 1 MG TAB PO PRN ×2 (08:22→12:14)
--- NOTE | 2021-12-20 11:36 | P.PN ---
Progress Note - Text Progress Note Date: 12/20/21 Interval History: Patient was seen wandering the hallways and was directable and agreeable to ap haas with administrative underwriter in the office. Patient continues to be delusional, rambling at times. He continues to believe that his rights are being "violated" and continues to want to speak with a it generalist. He states that the financial markets are "crashing" and he believes that people are "cashing out" and spoke significantly about money and other investments today. He continues to be very demanding about his medications. He continues to have poor hygiene and grooming. States that his mood is "upset" and denying any depression at this time. Sriram excited. He states that he slept fairly last night. At this time patient denies any suicidal or homical ideations, intent or plan. Patient denies any auditory, visual hallucinations. Patient has been compliant with medications. Mental Status Exam: General Appearance: Patient appears to be thin, disheveled appearance, stated age is alert, irritable and uncooperative, improving mildly. Patient appears to have poor hygiene and grooming. Behavior: Patient is seated without any agitated behavior. Irritable. Bizarre. Improving mildly Speech: Patient's speech is fluent and nonpressured. Vague. Mood/Affect: Patient reports their mood is "upset", affect is congruent and irritable Suicidality/Homicidality: Patient denies having any homicidal ideation intent or plan. Denies any suicidal ideations intent or plan Perceptions: Patient denies any visual hallucinations and denies any auditory hallucinations Though content/process: Delusional, bizarre. Endorsing significant paranoia. Loose associations. Memory and concentration: AOX3, grossly intact for the purposes of this session Judgment and insight: poor IMPRESSIONS: Schizoaffective disorder, bipolar type Cannabis use disorder Nicotine dependence Plan: -Patient continues to meet criteria for inpatient psychiatric admission for symptom stabilization and safety. Patient has not signed adult voluntary form and medication consent and was placed in patient's chart. -Medications: Trazodone 50 mg daily at bedtime for mood/insomnia. Discontinue Prolixin due to EPS reaction last night and replaced with paliperidone by mouth 3 mg daily at bedtime for psychosis. Plan will be to transition patient onto long-acting injection. Continue with Cogentin when necessary for EPS prophylaxis. -When necessary Ativan and Haldol for agitation/aggression. -NRT - nicotine patch -SW on board for discharge planning. Encouraged the patient to participate in milieu. Currently awaiting deferral with tax attorney and court date.
[2021-12-20] MEDS: GABAPENTIN 300 MG CAP PO SCH ×2 (14:57→21:25)
[2021-12-20] MEDS: LEVOTHYROXINE 75 MCG TAB PO SCH (14:57)
[2021-12-20] MEDS: NON FORMULARY DRUG (Buprenorphine Hcl [Subutex] 8 MG Tab.Subl) SUBLINGUAL SCH (14:58)
[2021-12-20] MEDS: CALCIUM CARBONATE 500 MG CHEWABLE PO SCH ×2 (15:46→21:25)
[2021-12-20] MEDS ORDERED: PALIPERIDONE 3 MG TAB.ER.24 PO SCH (21:00)
[2021-12-20] MEDS: traZODone HCL 50 MG TAB PO SCH (21:25)
[2021-12-21] MEDS: LORazepam 1 MG TAB PO PRN ×3 (04:48→22:02)
[2021-12-21] MEDS: LEVOTHYROXINE 75 MCG TAB PO SCH (04:52)
--- NOTE | 2021-12-21 08:23 | P.PN ---
Progress Note - Text Progress Note Date: 12/21/21 Interval History: Patient was seen wandering the hallways and was directable and agreeable to ap haas with commercial real estate underwriter in the office. Patient continues to be focused and obssessed with the markets and stocks. He continues to talk about Patient continues to be delusional, rambling at times and was difficult to redirect. He continues to believe that his rights are being "violated" and continues to want to speak with his tumblers supervisor. He states that he has not been going to groups and states that "I've done all that". His insight and judgment continue to be fair to poor. He was less demanding today about his medications. Claims that he did not have any reactions at all to the paliperidone last night. He was able to sleep fairly last night. At this time patient denies any suicidal or homical ideations, intent or plan. Patient denies any auditory, visual hallucinations. Patient has been compliant with medications. Mental Status Exam: General Appearance: Patient appears to be thin, disheveled appearance, stated age is alert, irritable and uncooperative, improving mildly. Patient appears to have poor hygiene and grooming. Behavior: Patient is seated without any agitated behavior. Irritable. Bizarre. Improving mildly Speech: Patient's speech is fluent and nonpressured. Vague. Mood/Affect: Patient reports their mood is "the same", affect is congruent and irritable Suicidality/Homicidality: Patient denies having any homicidal ideation intent or plan. Denies any suicidal ideations intent or plan Perceptions: Patient denies any visual hallucinations and denies any auditory hallucinations Though content/process: Delusional, bizarre. Endorsing significant paranoia. Loose associations. focused on finances and stock market. Memory and concentration: AOX3, grossly intact for the purposes of this session Judgment and insight: poor, improving midlly IMPRESSIONS: Schizoaffective disorder, bipolar type Cannabis use disorder Nicotine dependence Plan: -Patient continues to meet criteria for inpatient psychiatric admission for symptom stabilization and safety. Patient has not signed adult voluntary form and medication consent and was placed in patient's chart. -Medications: Trazodone 50 mg daily at bedtime for mood/insomnia. increase paliperidone by mouth 6 mg daily at bedtime for psychosis. Plan will be to transition patient onto long-acting injection. Continue with Cogentin when necessary for EPS prophylaxis. -When necessary Ativan and Haldol for agitation/aggression. -NRT - nicotine patch -SW on board for discharge planning. Encouraged the patient to participate in milieu. Currently awaiting deferral with tax associate attorney and court date.
[2021-12-21] MEDS: BENZTROPINE MESYLATE 1 MG TAB PO SCH ×2 (08:34→21:10)
[2021-12-21] MEDS: NON FORMULARY DRUG (Buprenorphine Hcl [Subutex] 8 MG Tab.Subl) SUBLINGUAL SCH (08:34)
[2021-12-21] MEDS: CALCIUM CARBONATE 500 MG CHEWABLE PO SCH ×3 (08:35→21:10)
[2021-12-21] MEDS: GABAPENTIN 300 MG CAP PO SCH ×3 (08:35→21:10)
[2021-12-21] MEDS: NICOTINE 21MG/24HR PATCH TRANSDERM SCH (08:35)
[2021-12-21] MEDS ORDERED: PALIPERIDONE 6 MG TAB.ER.24 PO SCH (21:00)
[2021-12-21] MEDS: traZODone HCL 50 MG TAB PO SCH (21:10)
[2021-12-22] MEDS: LORazepam 1 MG TAB PO PRN ×2 (06:39→14:06)
[2021-12-22] MEDS: LEVOTHYROXINE 75 MCG TAB PO SCH (06:39)
[2021-12-22] MEDS: GABAPENTIN 300 MG CAP PO SCH ×3 (08:29→20:43)
[2021-12-22] MEDS: NICOTINE 21MG/24HR PATCH TRANSDERM SCH (08:30)
[2021-12-22] MEDS: BENZTROPINE MESYLATE 1 MG TAB PO SCH ×2 (08:30→20:43)
[2021-12-22] MEDS: NON FORMULARY DRUG (Buprenorphine Hcl [Subutex] 8 MG Tab.Subl) SUBLINGUAL SCH (08:47)
[2021-12-22] MEDS: CALCIUM CARBONATE 500 MG CHEWABLE PO SCH ×3 (09:11→20:43)
--- NOTE | 2021-12-22 11:32 | P.PN ---
Progress Note - Text Progress Note Date: 12/22/21 Interval History: Patient was seen wandering the hallways and was directable and agreeable to ap haas with law writer in the office. Patient states that he is upset with law writer today about the petition and also the certificates that were done on him. He continues to perseverate on his rights and also with the financial markets. He claims that he has multiple daniel and [employer] in [place] and states that "theyre after me and taking my money" He beleives that he is part of a conspiracy theory. He states that he has lost of evidence and feels that he needs to speak to the middle school resource teacher about this so he can be released. His insight and judgment continue to be fairly poor. He was less demanding today about his medications. Claims that he did not have any reactions at all to the paliperidone last night. He was able to sleep fairly last night. At this time patient denies any suicidal or homical ideations, intent or plan. Patient denies any auditory, visual hallucinations. Patient has been compliant with medications. Mental Status Exam: General Appearance: Patient appears to be thin, disheveled appearance, stated age is alert, irritable and uncooperative, argumentative. Patient appears to have improving hygiene and grooming. Behavior: Patient is seated without any agitated behavior. Irritable. Bizarre. demanding. Speech: Patient's speech is fluent and nonpressured. Vague. Mood/Affect: Patient reports their mood is "pissed off", affect is congruent and irritable Suicidality/Homicidality: Patient denies having any homicidal ideation intent or plan. Denies any suicidal ideations intent or plan Perceptions: Patient denies any visual hallucinations and denies any auditory berger llucinations Though content/process: Delusional, bizarre. Endorsing significant paranoia. Loose associations. focused on finances and stock market. Memory and concentration: AOX3, grossly intact for the purposes of this session Judgment and insight: poor, improving midlly IMPRESSIONS: Schizoaffective disorder, bipolar type Cannabis use disorder Nicotine dependence Plan: -Patient continues to meet criteria for inpatient psychiatric admission for symptom stabilization and safety. Patient has not signed adult voluntary form and medication consent and was placed in patient's chart. -Medications: Trazodone 50 mg daily at bedtime for mood/insomnia. increase paliperidone by mouth 9 mg daily at bedtime for psychosis. Plan will be to transition patient onto long-acting injection. Continue with Cogentin when necessary for EPS prophylaxis. -When necessary Ativan and Haldol for agitation/aggression. -NRT - nicotine patch -SW on board for discharge planning. Encouraged the patient to participate in milieu. patient did not defer and will await court hearing date scheduled for saturday.
[2021-12-22] MEDS: PALIPERIDONE 3 MG TAB.ER.24 PO SCH (20:43)
[2021-12-22] MEDS: traZODone HCL 50 MG TAB PO SCH (20:43)
[2021-12-23] MEDS: LEVOTHYROXINE 75 MCG TAB PO SCH (06:27)
[2021-12-23] MEDS: ACETAMINOPHEN TAB 325 MG TAB PO PRN (08:08)
[2021-12-23] MEDS: BENZTROPINE MESYLATE 1 MG TAB PO SCH ×2 (08:08→20:14)
[2021-12-23] MEDS: GABAPENTIN 300 MG CAP PO SCH ×3 (08:08→20:15)
[2021-12-23] MEDS: NICOTINE 21MG/24HR PATCH TRANSDERM SCH (08:08)
[2021-12-23] MEDS: CALCIUM CARBONATE 500 MG CHEWABLE PO SCH ×3 (08:09→20:15)
[2021-12-23] MEDS: LORazepam 1 MG TAB PO PRN ×2 (08:14→15:54)
[2021-12-23] MEDS: NON FORMULARY DRUG (Buprenorphine Hcl [Subutex] 8 MG Tab.Subl) SUBLINGUAL SCH (08:28)
[2021-12-23] MEDS: PALIPERIDONE 3 MG TAB.ER.24 PO SCH (20:14)
[2021-12-23] MEDS: QUEtiapine 100 MG TAB PO SCH (20:15)
[2021-12-23] MEDS: traZODone HCL 50 MG TAB PO SCH (20:15)
--- NOTE | 2021-12-23 21:21 | P.PN ---
Progress Note - Text Progress Note Date: 12/23/21 Interval History: Patient was agreeable to speak with customs entry writer. At this time patient denies any bijan cidal or homicidal ideations, intent or plan. Patient denies any auditory, visual hallucinations. Patient has been compliant with medications. He complains of poor sleep with waking up multiple times at night. He reports mood is "alright". Thought process is linear, no delusional thoughts expressed to me today. Court hearing date scheduled for Saturday per primary team. Mental Status Exam: General Appearance: Patient appears to be disheveled, stated age, dressed in hospital gown. Behavior: Patient is not agitated, but is somewhat persistent when asks for Seroquel. Speech: Patient's speech is fluent and non-pressured. Mood/Affect: Mood is fair, affect is congruent and irritable Suicidality/Homicidality: Patient denies having any suiucidal or homicidal ideation intent or plan. Perceptions: Patient denies any visual hallucinations and denies any auditory hallucinations. Though content/process: Linear, requests Seroquel. Memory and concentration: AOX3, grossly intact for the purposes of this session Judgment and insight: poor, improving midly IMPRESSIONS: Schizoaffective disorder, bipolar type Cannabis use disorder Nicotine dependence Plan: -Patient continues to meet criteria for inpatient psychiatric admission for symptom stabilization and safety. -Medications: Continue Invega 9 mg daily for psychosis. Start short term trial of Seroquel 100 mg QHS for sleep/psychosis while still titrating Invega. Will address Seroquel with him again tomorrow. Continue Trazodone 50 mg QHS for mood/insomnia. Continue with Cogentin when necessary for EPS prophylaxis. -When necessary Ativan and Haldol for agitation/aggression. -NRT - nicotine patch -Encouraged the patient to participate in milieu.
[2021-12-24] MEDS: GABAPENTIN 300 MG CAP PO SCH ×3 (08:18→22:04)
[2021-12-24] MEDS: NICOTINE 21MG/24HR PATCH TRANSDERM SCH (08:18)
[2021-12-24] MEDS: LEVOTHYROXINE 75 MCG TAB PO SCH (08:18)
[2021-12-24] MEDS: LORazepam 1 MG TAB PO PRN ×3 (08:18→22:04)
[2021-12-24] MEDS: BENZTROPINE MESYLATE 1 MG TAB PO SCH ×2 (08:18→20:11)
[2021-12-24] MEDS: CALCIUM CARBONATE 500 MG CHEWABLE PO SCH ×3 (08:18→22:06)
[2021-12-24] MEDS: NON FORMULARY DRUG (Buprenorphine Hcl [Subutex] 8 MG Tab.Subl) SUBLINGUAL SCH (08:44)
--- NOTE | 2021-12-24 14:26 | P.PN ---
Progress Note - Text Progress Note Date: 12/24/21 Interval History: Patient was seen in the hallway and was agreeable to speak with telegraphic typewriter mechanic. He appe ars irritable and begins to ramble about delusional thought content of needing a "outdoor emergency care technician.... I got a new phone...4 new device logins.... told you guys I was crazy!", talks about being conned into something and someone named Navi Reagan. He has a mortgage in his name, stolen identity, and feels he has been misidentified as a schizophrenic. He reports improved sleep of 6-7 hours last night after adding back Seroquel 100 mg QHS but appears grossly psychotic this morning. He complains he is not getting his medications, and when asked which medication he is referring to he states Adderall. At this time patient denies any suicidal or homicidal ideations, intent or plan. Patient denies any auditory, visual hallucinations. Patient has been compliant with medications and denies side effects. Insight and judgment are poor. Court hearing date scheduled for Saturday per primary team. Mental Status Exam: General Appearance: Patient appears to be stated age, dressed in hospital gown, disheveled. Behavior: Patient is irritable, rambles, does not become agitated. Speech: Patient's speech is fluent and non-pressured. Mood/Affect: Mood is irritable, affect is congruent. Suicidality/Homicidality: Patient denies having any suiucidal or homicidal ideation intent or plan. Perceptions: Patient denies any visual hallucinations and denies any auditory hallucinations. Though process: Linear Thought content: Paranoid delusional thought content as described in HPI Memory and concentration: AOX3, grossly intact for the purposes of this session Judgment and insight: poor IMPRESSIONS: Schizoaffective disorder, bipolar type Cannabis use disorder Nicotine dependence Plan: -Patient continues to meet criteria for inpatient psychiatric admission for symptom stabilization and safety. -Medications: Continue Invega 9 mg daily for psychosis, with plan to transition to Invega Sustenna. Start short term trial of Seroquel 100 mg QHS for sleep/psychosis while still titrating Invega. Will defer Seroquel to primary team if they would like to continue. Continue Trazodone 50 mg QHS for mood/insomnia. Continue with Cogentin when necessary for EPS prophylaxis. -When necessary Ativan and Haldol for agitation/aggression. -NRT - nicotine patch -Encouraged the patient to participate in milieu.
[2021-12-24] MEDS: QUEtiapine 100 MG TAB PO SCH (20:11)
[2021-12-24] MEDS: PALIPERIDONE 3 MG TAB.ER.24 PO SCH (20:11)
[2021-12-24] MEDS: traZODone HCL 50 MG TAB PO SCH (20:11)
[2021-12-25] MEDS: LEVOTHYROXINE 75 MCG TAB PO SCH (06:14)
[2021-12-25] MEDS: GABAPENTIN 300 MG CAP PO SCH ×3 (08:30→21:08)
[2021-12-25] MEDS: NON FORMULARY DRUG (Buprenorphine Hcl [Subutex] 8 MG Tab.Subl) SUBLINGUAL SCH (08:30)
[2021-12-25] MEDS: NICOTINE 21MG/24HR PATCH TRANSDERM SCH (08:30)
[2021-12-25] MEDS: BENZTROPINE MESYLATE 1 MG TAB PO SCH (08:30)
[2021-12-25] MEDS: CALCIUM CARBONATE 500 MG CHEWABLE PO SCH ×3 (08:31→21:08)
--- NOTE | 2021-12-25 13:10 | P.PN ---
Progress Note - Text Progress Note Date: 12/25/21 Interval History: Patient was seen wandering the hallways and was directable and agreeable to sp waldo with mortgage loan underwriter in the office. Patient states that he feels more tired today during the day. He claims that he feels "overmedicated". He appears to be more logical and more oriented. He is less focused on the financial markets and daniel at this time. He claims that he is looking forward to going to court. He expressed his concerns and feelings towards the unit having a covid outbreak. His insight and judgment continue to be fairly poor however improving mildly. He was less demanding today about his medications. He was able to sleep fairly last night. At this time patient denies any suicidal or homical ideations, intent or plan. Patient denies any auditory, visual hallucinations. Patient has been compliant with medications. Mental Status Exam: General Appearance: Patient appears to be thin, disheveled appearance, stated age is alert, less irritable and more cooperative today. Patient appears to have improving hygiene and grooming. Behavior: Patient is seated without any agitated behavior. less Irritable. Speech: Patient's speech is fluent and nonpressured. Mood/Affect: Patient reports their mood is "ok", affect is congruent and constricted Suicidality/Homicidality: Patient denies having any homicidal ideation intent or plan. Denies any suicidal ideations intent or plan Perceptions: Patient denies any visual hallucinations and denies any auditory hallucinations Though content/process: less delusional, more goal oriented and rational. not endorsing paranoia today Memory and concentration: AOX3, grossly intact for the purposes of this session Judgment and insight: poor, improving midlly IMPRESSIONS: Schizoaffective disorder, bipolar type Cannabis use disorder Nicotine dependence Plan: -Patient continues to meet criteria for inpatient psychiatric admission for symptom stabilization and safety. Patient has not signed adult voluntary form and medication consent and was placed in patient's chart. -Medications: Trazodone 50 mg daily at bedtime for mood/insomnia. paliperidone by mouth 9 mg daily at bedtime for psychosis. Plan will be to transition patient onto long-acting injection. decrease cogentin to 0.5 mg bid for EPS prophylaxis. decrease seroquel 50 mg qhs for insomnia/psychosis. -When necessary Ativan and Haldol for agitation/aggression. -NRT - nicotine patch - on board for discharge planning. Encouraged the patient to participate in milieu. patient did not defer and will await court hearing date scheduled for saturday.
[2021-12-25] MEDS: LORazepam 1 MG TAB PO PRN (14:43)
[2021-12-25] MEDS: PALIPERIDONE 3 MG TAB.ER.24 PO SCH (20:47)
[2021-12-25] MEDS: QUEtiapine 50 MG TAB PO SCH (20:48)
[2021-12-25] MEDS: traZODone HCL 50 MG TAB PO SCH (20:49)
[2021-12-25] MEDS: BENZTROPINE MESYLATE 0.5 MG TAB PO SCH (20:49)
[2021-12-26] MEDS: LEVOTHYROXINE 75 MCG TAB PO SCH (06:23)
[2021-12-26] MEDS: BENZTROPINE MESYLATE 0.5 MG TAB PO SCH ×2 (08:08→20:23)
[2021-12-26] MEDS: NICOTINE 21MG/24HR PATCH TRANSDERM SCH (08:08)
[2021-12-26] MEDS: GABAPENTIN 300 MG CAP PO SCH ×3 (08:08→20:23)
[2021-12-26] MEDS: CALCIUM CARBONATE 500 MG CHEWABLE PO SCH ×3 (08:09→20:24)
[2021-12-26] MEDS: LORazepam 1 MG TAB PO PRN ×2 (08:29→16:08)
[2021-12-26] MEDS: NON FORMULARY DRUG (Buprenorphine Hcl [Subutex] 8 MG Tab.Subl) SUBLINGUAL SCH (09:11)
--- NOTE | 2021-12-26 11:30 | P.PN ---
Progress Note - Text Progress Note Date: 12/26/21 Interval History: Patient was seen wandering the hallways and was directable and agreeable to sp waldo with database report writer. Patient states that he feels ill today and also feels tired. He claims that he does not want to get up out of that and wants to stay in his room mainly. We spoke about his positive covid test results today but she had several questions about. He claims that he was not able to sleep well last night due to different physical symptoms. He states that he has not been going to groups. He appears to be more logical and goal oriented. Less focused on delusions today. His insight and judgment continue to be fairly poor however improving mildly. He was less demanding today about his medications. At this time patient denies any suicidal or homical ideations, intent or plan. Patient denies any auditory, visual hallucinations. Patient has been compliant with medications. Mental Status Exam: General Appearance: Patient appears to be thin, disheveled appearance, stated age is alert, less irritable and more cooperative. Patient appears to have improving hygiene and grooming. Behavior: Patient is seated without any agitated behavior. less Irritable. Speech: Patient's speech is fluent and nonpressured. Mood/Affect: Patient reports their mood is "not good", affect is congruent and constricted Suicidality/Homicidality: Patient denies having any homicidal ideation intent or plan. Denies any suicidal ideations intent or plan Perceptions: Patient denies any visual hallucinations and denies any auditory hallucinations Though content/process: less delusional, more goal oriented and rational. not endorsing paranoia today Memory and concentration: AOX3, grossly intact for the purposes of this session Judgment and insight: chronically poor, improving midlly IMPRESSIONS: Schizoaffective disorder, bipolar type Cannabis use disorder Nicotine dependence Plan: -Patient continues to meet criteria for inpatient psychiatric admission for symptom stabilization and safety. Patient has not signed adult voluntary form and medication consent and was placed in patient's chart. -Medications: Trazodone 50 mg daily at bedtime for mood/insomnia. paliperidone by mouth 9 mg daily at bedtime for psychosis. Plan will be to transition patient onto long-acting injection. decrease cogentin to 0.5 mg bid for EPS prophylaxis. decrease seroquel 50 mg qhs for insomnia/psychosis. -When necessary Ativan and Haldol for agitation/aggression. -NRT - nicotine patch -SW on board for discharge planning. Encouraged the patient to participate in milieu. patient did not defer and will await court hearing date scheduled for tomorrow.
[2021-12-26] MEDS: PALIPERIDONE 3 MG TAB.ER.24 PO SCH (20:24)
[2021-12-26] MEDS: traZODone HCL 50 MG TAB PO SCH (20:24)
[2021-12-26] MEDS: QUEtiapine 50 MG TAB PO SCH (20:24)
[2021-12-26] MEDS: ACETAMINOPHEN TAB 325 MG TAB PO PRN (20:26)
[2021-12-27] MEDS: LEVOTHYROXINE 75 MCG TAB PO SCH (06:11)
[2021-12-27] MEDS: NON FORMULARY DRUG (Buprenorphine Hcl [Subutex] 8 MG Tab.Subl) SUBLINGUAL SCH (09:04)
[2021-12-27] MEDS: GABAPENTIN 300 MG CAP PO SCH ×3 (09:04→20:18)
[2021-12-27] MEDS: NICOTINE 21MG/24HR PATCH TRANSDERM SCH (09:04)
[2021-12-27] MEDS: CALCIUM CARBONATE 500 MG CHEWABLE PO SCH ×3 (09:04→20:18)
[2021-12-27] MEDS: BENZTROPINE MESYLATE 0.5 MG TAB PO SCH ×2 (09:04→20:18)
[2021-12-27] MEDS: LORazepam 1 MG TAB PO PRN ×2 (09:10→16:40)
--- NOTE | 2021-12-27 11:05 | P.PN ---
Progress Note - Text Progress Note Date: 12/27/21 Interval History: Patient was seen wandering the hallways and was directable and agreeable to sp waldo with policy writer sales in his room. Patient states that he feels a bit better today with regards to his cough and fevers. He states that his mood is also improving. He continues to denying being "schizophrenic" and states that he was misdiagnosed in the past and beleives that he does not need medications. we spoke about court today. He claims that he was able to sleep a bit better last night. He states that he has not been going to groups. He appears to be more logical and goal oriented. Less focused on delusions today. His insight and judgment continue to be fairly poor however improving mildly. At this time patient denies any suicidal or homical ideations, intent or plan. Patient denies any auditory, visual hallucinations. Patient has been compliant with medications. Mental Status Exam: General Appearance: Patient appears to be thin, disheveled appearance, stated age is alert, less irritable and more cooperative. Patient appears to have improving hygiene and grooming. Behavior: Patient is seated without any agitated behavior. less Irritable. Speech: Patient's speech is fluent and nonpressured. Mood/Affect: Patient reports their mood is "a bit better", affect is congruent and constricted Suicidality/Homicidality: Patient denies having any homicidal ideation intent or plan. Denies any suicidal ideations intent or plan Perceptions: Patient denies any visual hallucinations and denies any auditory hallucinations Though content/process: less delusional, more goal oriented and rational. not endorsing paranoia today Memory and concentration: AOX3, grossly intact for the purposes of this session Judgment and insight: chronically poor, improving midlly IMPRESSIONS: Schizoaffective disorder, bipolar type Cannabis use disorder Nicotine dependence Plan: -Patient continues to meet criteria for inpatient psychiatric admission for symptom stabilization and safety. Patient has not signed adult voluntary form and medication consent and was placed in patient's chart. -Medications: increase paliperidone by mouth 12 mg daily at bedtime for psychosis. Plan will be to transition patient onto long-acting injection. decrease cogentin to 0.5 mg qhs for EPS prophylaxis. d/c seroquel and trazodone. melatonin 5 mg qhs for sleep. -When necessary Ativan and Haldol for agitation/aggression. -NRT - nicotine patch -SW on board for discharge planning. Encouraged the patient to participate in milieu. patient did not defer and will await court hearing date scheduled for today
[2021-12-27 16:00] LABS: Basophils % (A) 0 %; Eosinophils % (A) 1 %; HCT 37.3 % (39.0-53.0); HGB 12.6 gm/dL (13.0-17.5); Lymphocytes # (A) 0.7 k/uL (1.0-4.8); Lymphocytes % (A) 9 %; MCH 28.6 pg (25.0-35.0); MCHC 33.8 g/dL (31.0-37.0); MCV 84.6 fL (80.0-100.0); Mean Platelet Volume 7.8; Monocytes # (A) 0.4 k/uL (0-1.0); Monocytes % (A) 6 %; Neutrophils % (A) 83 %; Platelet Count 265 k/uL (150-450); RBC 4.41 m/uL (4.30-5.90); RDW 12.7 % (11.5-15.5); WBC 7.2 k/uL (3.8-10.6)
[2021-12-27 16:21] LABS: ALT 17 U/L (4-49); AST 26 U/L (17-59); African American GFR (CKD) >90 (>60 ml/min/1.73 sqM); Albumin 4.6 g/dL (3.5-5.0); Alkaline Phosphatase 61 U/L (38-126); Anion Gap 19 mmol/L; Blood Urea Nitrogen 11 mg/dL (9-20); Calcium 8.9 mg/dL (8.4-10.2); Carbon Dioxide 23 mmol/L (22-30); Chloride 97 mmol/L (98-107); Glucose 123 mg/dL (74-99); Non-African American GFR(CKD) >90 (>60 ml/min/1.73 sqM); Sodium 139 mmol/L (137-145); Total Bilirubin 0.4 mg/dL (0.2-1.3); Total Protein 7.7 g/dL (6.3-8.2)
[2021-12-27] MEDS: MELATONIN 5 MG TABLET PO SCH (20:18)
[2021-12-27] MEDS: PALIPERIDONE 6 MG TAB.ER.24 PO SCH (20:18)
[2021-12-28] MEDS: LORazepam 1 MG TAB PO PRN ×3 (05:24→20:13)
[2021-12-28] MEDS: LEVOTHYROXINE 75 MCG TAB PO SCH (05:24)
[2021-12-28] MEDS: ACETAMINOPHEN TAB 325 MG TAB PO PRN (05:25)
[2021-12-28] MEDS: NICOTINE 21MG/24HR PATCH TRANSDERM SCH (08:33)
[2021-12-28] MEDS: GABAPENTIN 300 MG CAP PO SCH ×3 (08:34→20:09)
[2021-12-28] MEDS: NON FORMULARY DRUG (Buprenorphine Hcl [Subutex] 8 MG Tab.Subl) SUBLINGUAL SCH (08:34)
[2021-12-28] MEDS: CALCIUM CARBONATE 500 MG CHEWABLE PO SCH ×3 (08:34→20:09)
[2021-12-28] MEDS ORDERED: PALIPERIDONE IM 234 MG/1.5 ML SYG IM STA (11:20)
[2021-12-28] MEDS: DIVALPROEX ER 500 MG TAB.ER.24H PO SCH (12:04)
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
[2021-12-28] MEDS: MELATONIN 5 MG TABLET PO SCH (20:09)
[2021-12-28] MEDS: PALIPERIDONE 6 MG TAB.ER.24 PO SCH (20:09)
[2021-12-28] MEDS: BENZTROPINE MESYLATE 0.5 MG TAB PO SCH (20:09)
[2021-12-29] MEDS: LORazepam 1 MG TAB PO PRN (05:09)
[2021-12-29] MEDS: LEVOTHYROXINE 75 MCG TAB PO SCH (05:09)
[2021-12-29 07:22] VITALS: BP 132/72; PULSE 80; RESP 16; TEMP 98.1
[2021-12-29 08:48] VITALS: BMI 22.9
[2021-12-29] MEDS: NON FORMULARY DRUG (Buprenorphine Hcl [Subutex] 8 MG Tab.Subl) SUBLINGUAL SCH (09:24)
[2021-12-29] MEDS: NICOTINE 21MG/24HR PATCH TRANSDERM SCH (09:24)
[2021-12-29] MEDS: CALCIUM CARBONATE 500 MG CHEWABLE PO SCH (09:25)
[2021-12-29] MEDS: DIVALPROEX ER 500 MG TAB.ER.24H PO SCH (09:25)
[2021-12-29] MEDS: GABAPENTIN 300 MG CAP PO SCH (09:25)
--- NOTE | 2021-12-29 11:05 | P.DS ---
Providers Date of admission: 12/19/21 02:52 Expected date of discharge: 12/29/21 Attending physician: Oral Alves MD Consults: 12/19/21 03:13 Consult Physician Routine Consulting Provider: Wilbur Deluca Consult Reason/Comments: h&p Do you want consulting provider notified?: Yes, Notify in am Primary care physician: Wilbur Deluca - Discharge Diagnosis(es) (1) Schizoaffective disorder, bipolar type Current Visit: Yes Status: Acute Priority: High (2) Cannabis use disorder Current Visit: Yes Status: Acute Priority: Medium (3) Nicotine dependence Current Visit: Yes Status: Acute Priority: Low Hospital Course: Admission HPI: Admission note was completed by technical proposal writer "Patient is a 36 yo male, with a history of schizoaffective disorder, currently living alone, SSD, no kids. Patient presented to the hospital yesterday and was evalauted in the ER for psych evalu ation. he was endorsing hallucinations, racing thoughts, delusions. Patient denies any suicidal or homicidal ideations intent or plan. At this time patient denies any auditory or visual hallucinations. Patient denies any flight of ideas racing thoughts and increased in goal directed behavior. He states that he was denied medications, and denied his rights. He was admitted involuntarily to the [facility] on a petition and cert claiming that he was delusional and bizarre. Patient states that he is "being illegally detained for the third time". He states "they all think I'm crazy" and started speaking about evidence against him. He also claims that "evidences being stolen as we speak". He spoke significantly about the [place] and also [place]. He claims that he also is involved in a "[place]". He claims that the government is manipulating investments and money. He states that he is angry at this time and he appears to be irritable and frustrated. He appears to have poor hygiene and grooming. He was requesting Xanax and Suboxone at this time and states that he is going through withdrawals. He is endorsing anxiety. He states that his sleep and appetite have been poor. He has very poor insight and judgment. Patient admits to using nicotine products daily, also using THC wax at this time. Denies any other recreational drug use." Hospital course: Upon admission to the unit patient was admitted involuntarily on a petition and certificate and a second certificate was completed and faxed with the courts. Patient ended up not signing a deferral with the financial professional and ended up appearing in court where he received a court order. Patient got along well with other patients on the unit and followed unit protocol. Patient was compliant with the medications and denied any side effects throughout hospital course. Patient was started on paliperidone and increased her dose of 12 mg by mouth for psychosis. Patient was given Invega Sustenna loading dose 234 mg IM on 12/28 and will be due for his next dose of 156 mg IM on 01/05. Patient will be due for his monthly dose of Invega Sustenna 234 mg IM on 01/26. Patient was also started on Depakote 500 mg daily for mood stabilization/racing thoughts, melatonin 5 mg daily at bedtime for sleep and Cogentin 0.5 mg daily at bedtime for EPS prophylaxis. Patient spoke of his stressors and engaged in therapy both group and individual. Patient was also seen by medical team for history and physical exam. Throughout the course of the hospitalization patient gradually improved with regards to mood, anxiety, psychosis/delusions, sleep and returned back to their baseline level of functioning. On the day of discharge patient denied any suicidal or homicidal ideations intent or plan denied any auditory or visual hallucinations. Patient endorsed wanting to live for his health and future. The patient denied any access to guns or weapons. Patient denied any paranoia and did not endorse any delusions. Patient does have a significant history of substance abuse and was counseled on abstaining from all substances including alcohol and marijuana. Patient elected to do outpatient substance use treatment program through [facility]. Patient was also counseled on the medications and need for regular compliance and was encouraged to follow-up with their outpatient appointment for mental health and also for primary care. Prior to discharge a family meeting will be arranged by psychosocial rehabilitation counselor to answer any questions and ensure safety upon discharge. Patient will be followed by the act team through [facility]. Mental status exam: General Appearance: Patient appears to be thin, stated age is alert, pleasant, and more cooperative. Patient is in no acute distress and has improved hygiene and grooming Behavior: Patient is calmly seated without any agitated behavior. More directable today. Speech: Patient's speech is fluent and nonpressured. Mood/Affect: Patient reports their mood is "good", affect is congruent and constricted Suicidality/Homicidality: Patient denies having any suicidal or homicidal ideation intent or plan. Perceptions: Patient denies any auditory or visual hallucinations. Though content/process: There is no evidence of any delusional thought content and thought process is linear and goal-directed. Memory and concentration: AOX3, grossly intact for the purposes of this session. Can spell "WORLD" backwards correctly. Judgment and insight: chronically poor, however has improved with guarded prognosis Impression: Schizoaffective disorder, bipolar type Cannabis use disorder Nicotine dependence Plan: -Continue with discharge today as patient has improved and stabilized psychiatrically and is not currently an imminent threat to himself and/or others. Patient will remain at chronically elevated risk for harm to self and/or others due to his chronic and persistent psychiatric condition and chronically poor judgment and insight. -Continue medications: Continue with paliperidone by mouth 9 mg daily at bedtime for 3 more days then discontinue. He received Invega Sustenna loading dose 234 mg IM on 12/28 and will be due for his next dose of 156 mg IM on 01/05. Patient will be due for his monthly dose of Invega Sustenna 234 mg IM on 01/26. -Patient was counseled on the need for medication compliance and appropriate follow-up at mental health and also primary care for medical issues. Patient verbalized understanding and agreed. -Social work to arrange for and conduct family meeting to ensure safety upon discharge and answer any questions/concerns. Social work also to arrange for patients follow up appointments with [facility] for psychiatric care along with follow up with primary care provider. Patient will be followed by ACT team aswell upon discharge. -Patient counseled on abstaining from recreational drugs and marijuana and alcohol. Was informed/educated on the adverse effects on their physical and mental health. Patient verbally agreed and understood. -Patient was instructed to return to the hospital or seek immediate medical care if their psychiatric or medical symptoms do worsen or reoccur. Allergies Allergy/AdvReac Type Severity Reaction Status Date / Time Penicillins Allergy Rash/Hives Verified 12/24/21 09:49 varenicline [From Chantix] AdvReac Unknown Verified 12/24/21 09:49 Laboratory Results WBC 7.2 k/uL (3.8-10.6) 12/27/21 15:43 RBC 4.41 m/uL (4.30-5.90) 12/27/21 15:43 Hgb 12.6 gm/dL (13.0-17.5) L 12/27/21 15:43 Hct 37.3 % (39.0-53.0) L 12/27/21 15:43 MCV 84.6 fL (80.0-100.0) 12/27/21 15:43 MCH 28.6 pg (25.0-35.0) 12/27/21 15:43 MCHC 33.8 g/dL (31.0-37.0) 12/27/21 15:43 RDW 12.7 % (11.5-15.5) 12/27/21 15:43 Plt Count 265 k/uL (150-450) 12/27/21 15:43 MPV 7.8 12/27/21 15:43 Neutrophils % 83 % 12/27/21 15:43 Lymphocytes % 9 % 12/27/21 15:43 Monocytes % 6 % 12/27/21 15:43 Eosinophils % 1 % 12/27/21 15:43 Basophils % 0 % 12/27/21 15:43 Neutrophils # 6.0 k/uL (1.3-7.7) 12/27/21 15:43 Lymphocytes # 0.7 k/uL (1.0-4.8) L 12/27/21 15:43 Monocytes # 0.4 k/uL (0-1.0) 12/27/21 15:43 Eosinophils # 0.0 k/uL (0-0.7) 12/27/21 15:43 Basophils # 0.0 k/uL (0-0.2) 12/27/21 15:43 Sodium 139 mmol/L (137-145) 12/27/21 15:43 Potassium 4.0 mmol/L (3.5-5.1) 12/27/21 15:43 Chloride 97 mmol/L (98-107) L 12/27/21 15:43 Carbon Dioxide 23 mmol/L (22-30) 12/27/21 15:43 Anion Gap 19 mmol/L 12/27/21 15:43 BUN 11 mg/dL (9-20) 12/27/21 15:43 Creatinine 0.67 mg/dL (0.66-1.25) 12/27/21 15:43 Est GFR (CKD-EPI)AfAm >90 (>60 ml/min/1.73 sqM) 12/27/21 15:43 Est GFR (CKD-EPI)NonAf >90 (>60 ml/min/1.73 sqM) 12/27/21 15:43 Glucose 123 mg/dL (74-99) H 12/27/21 15:[address] Glu mg/dL 98 12/27/21 15:43 Hemoglobin A1c 5.0 % (0.0-6.0) 12/27/21 15:43 Calcium 8.9 mg/dL (8.4-10.2) 12/27/21 15:43 Total Bilirubin 0.4 mg/dL (0.2-1.3) 12/27/21 15:43 AST 26 U/L (17-59) 12/27/21 15:43 ALT 17 U/L (4-49) 12/27/21 15:43 Alkaline Phosphatase 61 U/L (38-126) 12/27/21 15:43 Total Protein 7.7 g/dL (6.3-8.2) 12/27/21 15:43 Albumin 4.6 g/dL (3.5-5.0) 12/27/21 15:43 TSH 0.340 mIU/L (0.465-4.680) L 12/27/21 15:43 Free T4 1.30 ng/dL (0.78-2.19) 12/27/21 15:43 Urine Color Yellow 12/19/21 18:19 Urine Appearance Cloudy (Clear) 12/19/21 18:19 Urine pH 6.5 (5.0-8.0) 12/19/21 18:19 Ur Specific [place] 1.035 (1.001-1.035) 12/19/21 18:19 Urine Protein 3+ (Negative) H 12/19/21 18:19 Urine Glucose (UA) 1+ (Negative) H 12/19/21 18:19 Urine Ketones Negative (Negative) 12/19/21 18:19 Urine Blood Negative (Negative) 12/19/21 18:19 Urine Nitrite Negative (Negative) 12/19/21 18:19 Urine Bilirubin 1+ (Negative) H 12/19/21 18:19 Urine Urobilinogen 12.0 mg/dL (<2.0) 12/19/21 18:19 Ur Leukocyte Esterase Negative (Negative) 12/19/21 18:19 Urine RBC 2 /hpf (0-5) 12/19/21 18:19 Urine WBC 6 /hpf (0-5) H 12/19/21 18:19 Urine Mucus Many /hpf (None) H 12/19/21 18:19 Urine Opiates Screen Not Detected (NotDetected) 12/19/21 18:29 Ur Oxycodone Screen Not Detected (NotDetected) 12/19/21 18:29 Urine Methadone Screen Not Detected (NotDetected) 12/19/21 18:29 Ur Propoxyphene Screen Not Detected (NotDetected) 12/19/21 18:29 Ur Barbiturates Screen Not Detected (NotDetected) 12/19/21 18:29 U Tricyclic Antidepress Not Detected (NotDetected) 12/19/21 18:29 Ur Phencyclidine Scrn Not Detected (NotDetected) 12/19/21 18:29 Ur Amphetamines Screen Detected (NotDetected) H 12/19/21 18:29 U Methamphetamines Scrn Not Detected (NotDetected) 12/19/21 18:29 U Benzodiazepines Scrn Detected (NotDetected) H 12/19/21 18:29 Urine Cocaine Screen Not Detected (NotDetected) 12/19/21 18:29 U Marijuana (THC) Screen Detected (NotDetected) H 12/19/21 18:29 Coronavirus (PCR) Detected (Not Detectd) A 12/26/21 08:10 Vital Signs Temp 98.1 F 12/29/21 07:21 Pulse 80 12/29/21 07:21 Resp 16 12/29/21 07:21 BP 132/72 12/29/21 07:21 Pulse Ox 98 12/29/21 07:21 FiO2 Intake & Output 12/28/21 12/29/21 12/29/21 18:59 06:59 18:59 Weight 70.5 kg Patient Condition at Discharge: Stable Plan - Discharge Summary Discharge Rx Participant: No New Discharge Prescriptions: New Benztropine Mesylate [Cogentin] 0.5 mg PO HS 30 Days tab Nicotine 21Mg/24Hr Patch [Habitrol] 1 patch TRANSDERM DAILY 14 Days patch Paliperidone IM [Invega Sustenna] 156 mg IM ONCE #1 ml Paliperidone IM [Invega Sustenna] 234 mg IM QMONTHLY #1 each Melatonin 5 mg PO HS 30 Days tab Divalproex ER [Depakote ER] 500 mg PO HS 30 Days tab Paliperidone [Invega] 9 mg PO HS 3 Days tab Calcium Carbonate [Tums] 1,000 mg PO TID tab Continue buprenorphine HCL [Subutex] 4 mg SL DAILY Gabapentin [Neurontin] 300 mg PO TID Levothyroxine Sodium [Unithroid] 150 mcg PO DAILY Discontinued QUEtiapine FUMARATE [SEROquel] 200 mg PO DIRECTED Oyster Shell Calcium 500mg 1,000 mg PO TID Dextroamphetamine/Amphetamine [Adderall 20 mg Tablet] 30 mg PO BID ALPRAZolam [Xanax] 2 mg PO TID polyethylene glycoL 3350 [Miralax] 17 gm PO DAILY Ondansetron [Zofran] 4 mg PO TID PRN PRN Reason: Nausea Discharge Medication List buprenorphine HCL [Subutex] 4 mg SL DAILY 08/25/20 [History] Gabapentin [Neurontin] 300 mg PO TID 12/20/21 [History] Levothyroxine Sodium [Unithroid] 150 mcg PO DAILY 12/20/21 [History] Benztropine Mesylate [Cogentin] 0.5 mg PO HS 30 Days tab 12/29/21 [Rx] Calcium Carbonate [Tums] 1,000 mg PO TID tab 12/29/21 [Rx] Divalproex ER [Depakote ER] 500 mg PO HS 30 Days tab 12/29/21 [Rx] Melatonin 5 mg PO HS 30 Days tab 12/29/21 [Rx] Nicotine 21Mg/24Hr Patch [Habitrol] 1 patch TRANSDERM DAILY 14 Days patch 12/29/21 [Rx] Paliperidone IM [Invega Sustenna] 156 mg IM ONCE #1 ml 12/29/21 [Rx] Paliperidone IM [Invega Sustenna] 234 mg IM QMONTHLY #1 each 12/29/21 [Rx] Paliperidone [Invega] 9 mg PO HS 3 Days tab 12/29/21 [Rx] Follow up Appointment(s)/Referral(s): [facility] [Outside] - 12/29/21 1:00 pm (ACT will see pt in his home 12/29/21 at 1PM.) Wilbur Deluca MD [Primary Care Provider] - 1-2 days Patient Instructions/Handouts: How to Stop Smoking (DC), Psychotic Disorder (DC) Activity/Diet/Wound Care/Special Instructions: Avoid the use of street drugs and alcohol. Take all prescriptions as prescribed. When you are in need of refills on your medications, please contact your medical provider and/or outpatient psychiatrist to have this done. Please go to scheduled outpatient appointment for aftercare treatment. If symptoms return or become worse, call the crisis line at and/or go to the nearest emergency room for evaluation. Discharge Disposition: HOME SELF-CARE
== END 2021-12-29 12:30 | disposition home or self-care (01) | DRG 885 ==
LOC: EC 20:33 → 3MHU 12-19 02:52
PROVIDERS: ADMIT Psychiatry & Neurology Psychiatry; ATTEND Psychiatry & Neurology Psychiatry
PROC: 8E0ZXY6 Isolation (ICD-10-PCS; principal; 2021-12-26)
DX: F25.0 Schizoaffective disorder, bipolar type (principal); U07.1 COVID-19; Z91.19 Patient's noncompliance with other medical treatment and regimen; F12.19 Cannabis abuse with unspecified cannabis-induced disorder; Z28.310 Unvaccinated for COVID-19; F90.9 Attention-deficit hyperactivity disorder, unspecified type; E89.0 Postprocedural hypothyroidism; E78.5 Hyperlipidemia, unspecified; K21.9 Gastro-esophageal reflux disease without esophagitis; B19.20 Unspecified viral hepatitis C without hepatic coma; F41.9 Anxiety disorder, unspecified; F17.210 Nicotine dependence, cigarettes, uncomplicated; Z71.6 Tobacco abuse counseling; Z79.890 Hormone replacement therapy; Z79.899 Other long term (current) drug therapy; Z85.850 Personal history of malignant neoplasm of thyroid; Z60.2 Problems related to living alone; Z78.9 Other specified health status; Z71.41 Alcohol abuse counseling and surveillance of alcoholic; Z71.51 Drug abuse counseling and surveillance of drug abuser; Z88.0 Allergy status to penicillin; Z88.8 Allergy status to other drugs, medicaments and biological substances
CPT/HCPCS: 80053; 80306; 81001; 82075; 83036; 84439; 84443; 85025; 87635; 96372; 99285

== ENCOUNTER → 2022-03-14 | Outpatient (CLI) | payer MEDICARE, MEDICAID ==
[2022-03-15 00:17] LABS: ALT 9 U/L (10-49); AST 13 U/L (14-35); Albumin 4.5 g/dL (3.8-4.9); Albumin/Globulin Ratio 1.64 (1.60-3.17); Alkaline Phosphatase 70 U/L (41-126); BUN/Creat Ratio 14.42 Ratio (12.00-20.00); Blood Urea Nitrogen 10.4 mg/dL (9.0-27.0); Calcium 8.9 mg/dL (8.7-10.3); Carbon Dioxide 21.3 mmol/L (20.0-27.5); Chloride 102 mmol/L (96-109); Globulin 2.7 g/dL (1.6-3.3); Glucose 112 mg/dL (70-110); Non-African American GFR(CKD) 119.9 (60.0-200.0); Potassium 3.8 mmol/L (3.5-5.5); Sodium 139 mmol/L (135-145); Total Protein 7.2 g/dL (6.2-8.2)
== END | disposition home or self-care (01) ==
LOC: LABWHC1 14:18
PROVIDERS: ATTEND Internal Medicine
DX: C73 Malignant neoplasm of thyroid gland (principal); E55.9 Vitamin D deficiency, unspecified; E03.9 Hypothyroidism, unspecified
CPT/HCPCS: 36415; 80053; 82306; 84432; 84439; 84443; 86800

== ENCOUNTER → 2022-06-07 | Outpatient (CLI) | payer MEDICARE, MEDICAID ==
[2022-06-08 04:03] LABS: ALT 15 U/L (10-49); AST 20 U/L (14-35); African American GFR (CKD) 134.9 (60.0-200.0); Albumin 4.9 g/dL (3.8-4.9); Albumin/Globulin Ratio 1.67 (1.60-3.17); Alkaline Phosphatase 97 U/L (41-126); BUN/Creat Ratio 12.06 Ratio (12.00-20.00); Blood Urea Nitrogen 9.4 mg/dL (9.0-27.0); Calcium 9.4 mg/dL (8.7-10.3); Carbon Dioxide 20.9 mmol/L (20.0-27.5); Chloride 100 mmol/L (96-109); Globulin 2.9 g/dL (1.6-3.3); Glucose 130 mg/dL (70-110); Non-African American GFR(CKD) 116.4 (60.0-200.0); Potassium 4.1 mmol/L (3.5-5.5); Sodium 140 mmol/L (135-145); Total Protein 7.9 g/dL (6.2-8.2)
== END | disposition home or self-care (01) ==
LOC: LABWHC1 14:41
PROVIDERS: ATTEND Internal Medicine
DX: C73 Malignant neoplasm of thyroid gland (principal); E83.51 Hypocalcemia; E03.9 Hypothyroidism, unspecified
CPT/HCPCS: 36415; 80053; 82306; 84439; 84443; 84445; 86800

== ENCOUNTER → 2022-10-03 | Outpatient (CLI) | payer MEDICARE ==
[2022-10-03 21:07] LABS: T4, Free (Free Thyroxine) 0.66 ng/dL (0.800-1.800)
== END | disposition home or self-care (01) ==
LOC: LABWHC1 16:04
PROVIDERS: ATTEND Internal Medicine
DX: E03.9 Hypothyroidism, unspecified (principal)
CPT/HCPCS: 36415; 84439; 84443

== ENCOUNTER → 2022-11-09 | Outpatient (CLI) | payer MEDICARE ==
[2022-11-09 21:17] LABS: T4, Free (Free Thyroxine) 1.62 ng/dL (0.80-1.80)
== END | disposition home or self-care (01) ==
LOC: LABWHC1 11:55
PROVIDERS: ATTEND Internal Medicine
DX: C73 Malignant neoplasm of thyroid gland (principal)
CPT/HCPCS: 36415; 84432; 84439; 84443; 86800

== ENCOUNTER → 2023-01-23 | Outpatient (CLI) | payer MEDICARE ==
[2023-01-24 09:05] LABS: Urine Alcohol Negative (Negative); Urine Barbiturate Negative (Negative); Urine Cocaine Negative (Negative); Urine Methadone Negative (Negative); Urine Opiates Negative (Negative); Urine Phencyclidine Negative (Negative)
== END | disposition home or self-care (01) ==
LOC: LABWHC1 15:30
PROVIDERS: ATTEND Family Medicine
DX: Z02.4 Encounter for examination for driving license (principal); Z79.899 Other long term (current) drug therapy
CPT/HCPCS: 80306

== ENCOUNTER 2023-02-23 20:34 | Emergency (ER) | payer MEDICARE ==
[2023-02-23] MEDS ORDERED: ALPRAZolam 0.25 MG TAB PO STA (21:02)
[2023-02-23 21:05] VITALS: RESP 18
[2023-02-23] MEDS ORDERED: FLUORESCEIN STRIPS 1 MG STRIP BOTH EYES ONE (21:28)
[2023-02-23] MEDS ORDERED: CIPROFLOXACIN 0.3% OPHTH SOLN 5 ML BTL BOTH EYES STA (22:24)
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
[2023-02-23 23:30] VITALS: BP 120/88; PULSE 100; TEMP 98.8
== END 2023-02-23 23:13 | disposition home or self-care (01) ==
LOC: EC 20:34
DX: S05.02XA Injury of conjunctiva and corneal abrasion without foreign body, left eye, initial encounter (principal); T65.893A Toxic effect of other specified substances, assault, initial encounter; H01.006 Unspecified blepharitis left eye, unspecified eyelid; H01.003 Unspecified blepharitis right eye, unspecified eyelid; F90.9 Attention-deficit hyperactivity disorder, unspecified type; F41.9 Anxiety disorder, unspecified; Z79.899 Other long term (current) drug therapy; Z88.0 Allergy status to penicillin; Z88.8 Allergy status to other drugs, medicaments and biological substances; Z87.891 Personal history of nicotine dependence; Y04.0XXA Assault by unarmed brawl or fight, initial encounter
CPT/HCPCS: 99284

== ENCOUNTER → 2023-08-01 | Outpatient (CLI) | payer MEDICARE ==
[2023-08-01 21:20] LABS: BUN/Creat Ratio 18.57 Ratio (12.00-20.00); Calcium 9.2 mg/dL (8.7-10.3); Carbon Dioxide 22.6 mmol/L (21.6-31.8); Chloride 105 mmol/L (96-109); Glucose 127 mg/dL (70-110); Potassium 3.7 mmol/L (3.5-5.5); Sodium 142 mmol/L (135-145); T4, Free (Free Thyroxine) 2.37 ng/dL (0.80-1.80)
== END | disposition home or self-care (01) ==
LOC: LABWHC1 13:55
PROVIDERS: ATTEND Internal Medicine
DX: C73 Malignant neoplasm of thyroid gland (principal); E03.9 Hypothyroidism, unspecified
CPT/HCPCS: 36415; 80048; 84432; 84439; 84443; 86800

== ENCOUNTER → 2024-02-05 | Outpatient (CLI) | payer MEDICARE ==
--- NOTE | 2024-02-05 16:25 | US ---
EXAMINATION TYPE: US thyroid st tissue head/neck DATE OF EXAM: 02/05/2024 COMPARISON: 04/21/2021 CLINICAL INDICATION: Male, 38 years old with history of C73 THYROID CANCER; Hx thyroid cancer with to krystina thyroidectomy x 1.5 years. GLAND SIZE: NODULES RIGHT: Right thyroid lobe surgically absent LEFT: Left thyroid lobe surgically absent ISTHMUS: Isthmus surgically absent Bilateral neck scanned. Largest lymph node measured: - Right: superior neck, short axis = 0.5 cm and cortical thickness= 2.8 mm - Left: Possible lymph node superior neck, short axis = 0.6 cm and unable to visualize fatty hilum t o measure cortical thickness IMPRESSION: No evidence for suspicious mass. Lymph nodes which are within normal limits for size. Consider short- term follow-up if there is this concern for metastatic disease. Images do not definitely correlate with prior images prior to surgery on 04/21/2021. [facility], , 02/05/2024 4:23 PM
== END | disposition home or self-care (01) ==
LOC: RADUSWWP 14:49
PROVIDERS: ATTEND Internal Medicine
DX: C73 Malignant neoplasm of thyroid gland
CPT/HCPCS: 76536; 84432; 86800

== ENCOUNTER → 2024-07-23 | Outpatient (CLI) | payer MEDICARE, OTHER ==
[2024-07-24 03:09] LABS: T4, Free (Free Thyroxine) 0.15 ng/dL (0.80-1.80)
== END | disposition home or self-care (01) ==
LOC: LABWHC1 15:37
PROVIDERS: ATTEND Internal Medicine
DX: C73 Malignant neoplasm of thyroid gland (principal); E55.9 Vitamin D deficiency, unspecified
CPT/HCPCS: 36415; 82306; 83516; 84432; 84439; 84443

== ENCOUNTER → 2024-08-20 | Outpatient (CLI) | payer MEDICARE, OTHER ==
--- NOTE | 2024-08-20 14:36 | US ---
EXAMINATION TYPE: US thyroid st tissue head/neck DATE OF EXAM: 08/20/2024 COMPARISON: NONE CLINICAL INDICATION: Male, 38 years old with history of C73 MALIGNANT NEOPLASM OF THYROID GLAND; Hist ory of thyroid cancer. thyroidectomy TECHNIQUE: Grayscale and color Doppler imaging of the thyroid gland. FINDINGS: GLAND SIZE: Right Lobe: Surgically absent Left Lobe: Surgically absent Isthmus Thickness: Surgically absent NODULES RIGHT: # of nodules measured on right: 0 LEFT: # of nodules measured on left: 0 ISTHMUS: # of nodules measured in the isthmus: 0 Bilateral neck scanned, lymph node right neck = 2.0 x 0.5 x 1.6 cm and left neck = 1.6 x 0.8 x 1.4cm IMPRESSION: 1. No evidence for thyroid nodule. 2. Normal appearing left neck lymph node measuring up to 8 mm in short axis. TI-RADS assessment score and recommendation for follow-up based on appropriate scoring and treatment protocols. TR3: If nodule size is ? 2.5 cm, FNA is recommended. If nodule size is ? 1.5 cm, follow-up imaging at 1, 3, and 5 years is recommended. TR4: If nodule size is ? 1.5 cm, FNA is recommended. If nodule size is ? 1.0 cm, follow-up imaging at 1, 2, 3, and 5 years is recommended. TR5: If nodule size is ? 1.0 cm, FNA is recommended. If nodule size is ? 0.5 cm, annual follow-up for up to 5 years is recommended. [email or web address] [facility], , 08/20/2024 2:34 PM
== END | disposition home or self-care (01) ==
LOC: RADUSWWP 13:50
PROVIDERS: ATTEND Internal Medicine
DX: C73 Malignant neoplasm of thyroid gland (principal); Z85.850 Personal history of malignant neoplasm of thyroid
CPT/HCPCS: 76536